=== PATIENT | female | born 1965 | race African-American/Black ===

== ENCOUNTER 2016-06-18 19:36 | Inpatient (IN) | payer MEDICAID ==
[2016-06-18] MEDS ORDERED: FUROSEMIDE 20 MG/2 ML VIAL IVP ONE (19:52)
--- NOTE | 2016-06-18 19:52 | EDPHY ---
HPI/HX/ROS/PE/MDM Narrative: CHIEF COMPLAINT: Dyspnea HPI: The patient is a homeless 51 y/o female arriving via EMS from the [facility] with her friend complaining of shortness of breath for the last 2 months. She was diagnosed with CHF 2 months ago and also has a history of diabetes. Every morning she notices chest heaviness when she puts on her bra and difficulty breathing that is aggravated by exertion. She says, "I'm huffing and puffing and I'm trying to make a doctor understand I'm having this issue." She has not taken any of her mediations including her furosemide for the last 3 days because "they're locked up in storage." She has an appointment scheduled with [facility] on Tuesday, in 3 days. REVIEW OF SYSTEMS: Aside from elements discussed in the HPI, a comprehensive 10-point review of systems was reviewed and is negative. PMH: CHF - Furosemide, sleep apnea, brain aneurysm with memory problems, diabetes SOCIAL HISTORY: [facility] 2 [facility]. Friend at bedside. Formerly lived in [place]. PCP: [facility] PHYSICAL EXAM: General:Patient is alert, obese, in no acute distress. ENT:Eyes are normal to inspection. ENT inspection normal. Neck: Normal inspection. Full range of motion. Respiratory:No respiratory distress. Breath sounds normal bilaterally. Speaking in full sentences. Cardiovascular: Regular rate and rhythm. Strong peripheral pulses. Normal cap refill. Abdomen:The abdomen is nontender to palpation. There are no peritoneal signs. There are normal bowel sounds. Back: Normal to inspection. No tenderness to palpation. Skin: Normal color. No rash. Warm and dry. Extremities: Normal appearance. Full range of motion. Neuro: Oriented x3. Normal motor function. Normal sensory function. ED Course: IV established. Labs drawn including CBC, CHEM, BNP, troponin. Lasix administered. Chest x-ray and EKG ordered. Study: Chest x-ray Indication: Dyspnea Results: Chest x-ray was obtained. The results of the study are cardiomegaly. Radiologist report pending. I viewed the images myself on the PACS system. The 12 lead EKG was interpreted by myself. See hard copy and/or "tracemaster" electronic copy for interpretation. 2005: Reviewed patient's records in [facility]. She has had multiple admissions and ED visits to local hospitalist in the last few months. She was last admitted to [place] on 05/23/16 for similar symptoms to her presentation here today. She had a negative work up for PE and other acute issues at that time. BNP, BGL, and troponin elevated. Patient will require admission for CHF exacerbation and dyspnea. She has not been hypoxemic while here. 2110: Spoke with Dr. Servin, hospitalist. He accepts admission. - Data Points Laboratory Results: Laboratory Results 06/18/16 19:45 06/18/16 19:45 06/18/16 06/18/16 19:45 19:45 WBC 7.14 10^3/uL 10^3/uL (3.80-9.50) RBC 4.75 10^6/uL 10^6/uL (4.18-5.33) Hgb 13.5 g/dL g/dL (12.6-16.3) Hct 40.8 % % (38.0-47.0) MCV 85.9 fL fL (81.5-99.8) MCH 28.4 pg pg (27.9-34.1) MCHC 33.1 g/dL g/dL (32.4-36.7) RDW 14.3 % % (11.5-15.2) Plt Count 356 10^3/uL 10^3/uL (150-400) MPV 10.4 fL fL (8.7-11.7) Neut % (Auto) 62.1 % % (39.3-74.2) Lymph % (Auto) 28.7 % % (15.0-45.0) Wright % (Auto) 6.2 % % (4.5-13.0) Eos % (Auto) 1.3 % % (0.6-7.6) Baso % (Auto) 1.0 % % (0.3-1.7) Nucleat RBC Rel Count 0.0 % % (0.0-0.2) Absolute Neuts (auto) 4.44 10^3/uL 10^3/uL (1.70-6.50) Absolute Lymphs (auto) 2.05 10^3/uL 10^3/uL (1.00-3.00) Absolute Monos (auto) 0.44 10^3/uL 10^3/uL (0.30-0.80) Absolute Eos (auto) 0.09 10^3/uL 10^3/uL (0.03-0.40) Absolute Basos (auto) 0.07 10^3/uL 10^3/uL (0.02-0.10) Absolute Nucleated RBC 0.00 10^3/uL 10^3/uL (0-0.01) Immature Gran % 0.7 % % (0.0-1.1) Immature Gran # 0.05 10^3/uL 10^3/uL (0.00-0.10) Sodium 139 mEq/L mEq/L (134-144) Potassium 4.0 mEq/L mEq/L (3.5-5.2) Chloride 103 mEq/L mEq/L (97-110) Carbon Dioxide 22 mEq/l mEq/l (22-31) Anion Gap 14 mEq/L mEq/L (8-16) BUN 21 mg/dL mg/dL (7-23) Creatinine 0.8 mg/dL mg/dL (0.6-1.0) Estimated GFR > 60 Glucose 387 mg/dL H mg/dL (70-100) Calcium 9.0 mg/dL mg/dL (8.5-10.4) Troponin I 0.039 ng/mL H ng/mL (0-0.034) NT-Pro-B Natriuret Pep 1350 pg/mL H pg/mL (0-125) Medications Given: Discontinued Medications Furosemide (Lasix Injection) 20 mg IVP EDNOW ONE Stop: 06/18/16 19:53 Last Admin: 06/18/16 20:14 Dose: 20 mg General Time Seen by Provider: 06/18/16 19:42 Initial Vital Signs: Initial Vital Signs Temperature (C) 36.6 C 06/18/16 19:49 Heart Rate 110 H 06/18/16 19:49 Respiratory Rate 26 H 06/18/16 19:49 Blood Pressure 186/86 H 06/18/16 19:49 O2 Sat (%) 97 06/18/16 19:49 O2 Delivery Mode Room Air Allergies/Adverse Reactions: ceftriaxone sodium [From Rocephin] Allergy (Verified 06/18/16 19:48) Home Medications: Medication Instructions Recorded Carvedilol 06/18/16 Lasix 06/18/16 Lisinopril 06/18/16 Metformin HCl 06/18/16 Departure - Departure Disposition: [facility] Inpatient Acute Clinical Impression: CHF exacerbation Qualifiers: Congestive heart failure type: unspecified congestive heart failure type Qualified Code(s): I50.9 - Heart failure, unspecified Dyspnea Qualifiers: Dyspnea type: shortness of breath Qualified Code(s): R06.02 - Shortness of breath Condition: Fair Referrals: Patient,NotPresent [Unknown] - As per Instructions Report Scribed for: Blair Hansen Report Scribed by: Ally Boston Date of Report: 06/18/16 Time of Report: 19:52 Physician Review and Approval Statement: Portions of this note were transcribed by an ED scribe. I personally performed the history, physical exam, and medical decision making; and confirm the accuracy of the information in the transcribed note.
[2016-06-18 20:00] LABS: % IMMATURE GRANULYOCYTES 0.7 % (0.0-1.1); ABSOLUTE IMMATURE GRANULOCYTES 0.05 10^3/uL (0.00-0.10); ADD DIFF? NO; ADD MORPH? NO; ADD SCAN? NO; ATYPICAL LYMPHOCYTE FLAG 10 (0-99); FRAGMENT RBC FLAG 10 (0-99); HEMATOCRIT 40.8 % (38.0-47.0); HEMOGLOBIN 13.5 g/dL (12.6-16.3); LEFT SHIFT FLG 10 (0-99); LIPEMIA HEMOLYSIS FLAG 80 (0-99); MEAN CELL HEMOGLOBIN 28.4 pg (27.9-34.1); MEAN CELL HEMOGLOBIN CONCENTR. 33.1 g/dL (32.4-36.7); MEAN CELL VOLUME 85.9 fL (81.5-99.8); MEAN PLATELET VOLUME 10.4 fL (8.7-11.7); PLATELET CLUMPS FLAG 10 (0-99); PLATELET COUNT 356 10^3/uL (150-400); RED BLOOD CELL COUNT 4.75 10^6/uL (4.18-5.33); RED CELL DISTRIBUTION WIDTH 14.3 % (11.5-15.2)
[2016-06-18 20:07] LABS: ANION GAP 14 mEq/L (8-16); CARBON DIOXIDE 22 mEq/l (22-31); CHLORIDE 103 mEq/L (97-110); CREATININE 0.8 mg/dL (0.6-1.0); GLOMERULAR FILTRATION RATE > 60; GLUCOSE 387 mg/dL (70-100); SODIUM 139 mEq/L (134-144)
[2016-06-18 20:17] LABS: TROPONIN I 0.039 ng/mL (0-0.034)
--- NOTE | 2016-06-18 22:53 | GHP ---
[f rep st] HISTORY AND PHYSICAL DATE OF ADMISSION: 06/18/2016 CHIEF COMPLAINT: Shortness of breath. HISTORY OF PRESENT ILLNESS: This is a 51-year-old female with a history of what appears to be a non ischemic cardiomyopathy. She has seen physicians at [place]. She was diagnosed about a year ago . She believes that it may have been due to crack cocaine usage prior. She states that for the las t several weeks, even months, she has been having shortness of breath, essentially all the time. No PND, no orthopnea. She was living in [place], but they came to [place]. She heard there were [employer] benefits here in terms of housing. She was feeling slightly more short of breath than normal toda y and called the paramedics, and she was slightly hypoxic, and they recommended her to come here. S he does have some lower extremity edema, a little bit of chest tightness as well. REVIEW OF SYSTEMS: A 10-point review of systems was obtained and other than stated was negative. PAST MEDICAL HISTORY: 1. CHF. 2. Hypertension. 3. Obstructive sleep apnea, and she has been without her CPAP machine for complicated reasons for t he last month. 4. Type 2 diabetes. 5. Hypertension. 6. Previous history of a ruptured cerebral aneurysm about 3 years ago. SOCIAL HISTORY: No smoking; no tobacco smoke, but has smoked marijuana. No alcohol. Smoked crack cocaine for 25 years, but quit 3 years ago, and that is when she moved here, as her son had moved he re to clean up his life as well. She has had a falling out with her son last month, and he actually has her CPAP machine, and there is currently a restraining order between them. FAMILY HISTORY: Many members of her family have congestive heart failure. PHYSICAL EXAM: VITAL SIGNS: Afebrile. Blood pressure is 159/92. Heart rate is 94, oxygen saturat ion 96% on room air. GENERAL: The patient is well developed, in no apparent distress. HEENT: Non icteric sclerae. EOMs intact. Moist mucous membranes. NECK: Supple. No thyromegaly. LUNGS: Pr elizabeth good effort. Clear to auscultation bilaterally. CARDIOVASCULAR: Regular rate and rhythm. No murmurs, rubs, or gallops. ABDOMEN: Positive bowel sounds. Soft, nontender, nondistended. No he patosplenomegaly. EXTREMITIES: No clubbing or cyanosis, 1+ pedal edema. NEUROLOGIC: Alert and or iented x3. Moving all 4 extremities equally. PSYCH: Normal mood and affect. LABS: Chemistry is normal. The glucose is 387. Troponin 0.039. BNP 1350. CBC is normal. IMAGING: Chest x-ray shows some possible early congestive heart failure. ASSESSMENT: This is a 51-year-old female with mild congestive heart failure exacerbation. PLAN: 1. CHF exacerbation. We will continue with IV Lasix. We will get an echocardiogram, so we can hav e one in the system here. We will continue her home medicines, which include ALEXIS inhibitor and Core g, as well as well Aldactone. She may need to increase her home dose of Lasix. 2. Mild troponin elevation. Suspect that there is some strain, but we will cycle these. 3. Type 2 diabetes. We will continue her metformin. 4. Hypertension. Continue her medications. /[id number]/MODL
[2016-06-19] MEDS: ASPIRIN EC 81 MG TAB PO SCH (08:05)
[2016-06-19] MEDS: LISINOPRIL 20 MG TAB PO SCH (08:05)
[2016-06-19] MEDS: metFORMIN HCL 500 MG TAB PO SCH ×2 (08:06→16:57)
--- NOTE | 2016-06-19 08:21 | HOSPPROG ---
Hospitalist Progress Note Assessment/Plan: #Acutely decompensated systolic HF -h/o crack use (last used 3 yrs ago). Obtain [facility] records for prior TTE -increase Lasix 40mg IV, afterload with ACEI. telemetry. Verbal report EF 15-20 % here -Appreciate Dr. Kinney consultation #Indeterminate troponin: suspect from volume overload -denies CP #Accelerated HTN -cont ACEI, add hydral PRN #Obesity: counseled on diet #Diet: cardiac, low Na #Disp: pt warrants admission given acute hypoxia, needing IV lasix, labs Subjective: denies CP Objective: Vital Signs Temp Pulse Resp BP Pulse Ox 36.6 C 89 22 H 132/87 H 98 06/19/16 07:52 06/19/16 07:52 06/19/16 07:52 06/19/16 08:05 06/19/16 07:52 - Physical Exam Constitutional: obese Eyes: PERRL Ears, Nose, Mouth, Throat: moist mucous membranes Cardiovascular: regular rate and rhythym, edema (LLE edema +1-2) Respiratory: no respiratory distress Gastrointestinal: normoactive bowel sounds, soft, non-tender abdomen Skin: warm Musculoskeletal: full muscle strength Neurologic: AAOx3 Psychiatric: interacting appropriately ICD10 Worksheet Patient Problems: Problems Problem Status Onset CHF exacerbation Acute Dyspnea Acute
[2016-06-19] MEDS ORDERED: FUROSEMIDE 20 MG/2 ML VIAL IVP SCH (09:00)
--- NOTE | 2016-06-19 09:24 | CPEKG ---
Heart Rate: 103 RR Interval: 583 P-R Interval: 160 QRSD Interval: 84 QT Interval: 380 QTC Interval: 498 P Stockholm: 71 QRS Stockholm: 10 T Wave Stockholm: 100 EKG Severity - ABNORMAL ECG - EKG Impression: SINUS TACHYCARDIA EKG Impression: LVH WITH SECONDARY REPOLARIZATION ABNORMALITY EKG Impression: BORDERLINE PROLONGED QT INTERVAL Electronically Signed By: Wilder Ramos 21-Jun-2016 09:42:32
[2016-06-19] MEDS ORDERED: hydrALAZINE 25 MG TAB PO PRN (12:17)
--- NOTE | 2016-06-19 12:52 | ECHO ---
[id number] + + [address] : : [place] [id number] : : [phone] + + Adult Echocardiographic Report + + :Name: MARINA TYLERAdelfo Date: 06/19/2016 10:40 AM : : Hospital Admission Number: [id number] : :: 1965 Gender: Female Height: 65 in : :Age: 51 yrs Race: BAA Weight: 280 lb : :Reason For Study: Eval LV Fx : : BSA: 2.3 meters2: :History: SOB, CHF : + + MMode/2D Measurements \T\ Calculations IVSd: 1.1 cm LVIDd: 6.1 cm FS: 8.4 % Ao root diam: 2.9 cm LVPWd: 1.2 cm LVIDs: 5.6 cm EDV(Teich): 184.5 ml ACS: 1.8 cm ESV(Teich): 150.8 ml EF(Teich): 18.2 % Normal Measurement Values: + + :LVIDd (3.5-5.7cm) IVSd (0.6-1.1cm) LVPWd (0.6-1.1cm) Aortic Root (2.0-3.7cm)Left Atrium (1.5-4.0cm): :LV Vol(d) (76-115ml) LV Vol(s) (29-48ml) Ejec Fraction (50-65%)PV Dung (0.6- 1.2m/s) TV Dung (0.4-1.0m/s) : :MV E Dung (0.8-1.0m/s)MV A Dung (0.3-1.0m/s)LVOT Dung (0.7-1.2m/s) Asc Ao Dung ( 0.9-1.8m/s) : + + Doppler Measurements \T\ Calculations MV E max dung: Ao V2 max: LV V1 max: PA V2 max: 72.1 cm/sec 119.0 cm/sec 71.1 cm/sec 100.0 cm/sec MV A max dung: Ao max PG: LV V1 max PG: PA max P.3 cm/sec 5.7 mmHg 2.0 mmHg 4.0 mmHg MV E/A: 0.77 TR max dung: 270.0 cm/sec TR max P.2 mmHg RAP systole: 5.0 mmHg RVSP(TR): 34.2 mmHg Left Ventricle The left ventricle is normal in size. There is mild concentric left ventricular hypertrophy. Left ventricular systolic function is severely reduced. Ejection Fraction = 15-20%. There is Doppler evidence for diastolic dysfunction. There is moderate to severe global hypokinesis of the left ventricle. Right Ventricle The right ventricle is normal size. Atria The left atrium is moderately dilated. Right atrial size is normal. Mitral Valve The mitral valve is normal. There is no mitral valve stenosis. There is trace to mild mitral regurgitation. Tricuspid Valve There is mild tricuspid regurgitation. Aortic Valve The aortic valve is normal in structure and function. The aortic valve is trileaflet. There is no aortic stenosis. There is no aortic insufficiency. Pulmonic Valve The pulmonic valve is normal in structure and function. There is no pulmonic valvular regurgitation. Great Vessels The aortic root is normal size. Pericardium/Pleural There is no pericardial effusion. Conclusion A complete two-dimensional transthoracic echocardiogram was performed (2D, M-mode, Doppler and color flow Doppler). There is mild concentric left ventricular hypertrophy. Ejection Fraction = 15-20%. There is moderate to severe global hypokinesis of the left ventricle. There is Doppler evidence for diastolic dysfunction. The right ventricle is normal size. The left atrium is moderately dilated. There is trace to mild mitral regurgitation. There is no mitral valve stenosis. The mitral valve is normal. There is mild tricuspid regurgitation. The aortic valve is normal in structure and function. The aortic valve is trileaflet. The pulmonic valve is normal in structure and function. There is no pericardial effusion. Left ventricular systolic function is severely reduced. Final Reading Physician: Isaura Horta signed on 06/19/2016 12:50 PM Ordering Physician: Latasha Bundy Performed By: Gilmer Morataya, LILICS
--- NOTE | 2016-06-19 15:15 | GCON ---
[f rep st] CONSULTATION CARDIOLOGY CONSULTATION. CHIEF COMPLAINT: Shortness of breath. HISTORY OF PRESENT ILLNESS: This very pleasant woman has been suffering severely with shortness of breath. Her shortness of breath was so severe yesterday, [facility]. They got there, and her oxygen saturation was low and she was brought to the emergency room. She did not want to come to the hospital because she does not like hospitals, she does not like getting her blood drawn. However, she decided that she needed to be here, so she is glad to be here at this point in time. She has had ongoing shortness of breath. There are no pillows at the [facility] so she sleeps on 4-5 blankets folded over to raise her head up, and she still will wake up sometimes with shortness of breath at night. She has gained 80 pounds. She has no early satiety, no appetite loss. She has no chest pain, chest tightness, jaw pain, arm pain, pleuritic chest pain. She has a chronic cough but she does not produce significant sputum. She has not had fever, chills, cough, rashes, or swollen joints. She has multiple major severe medical problems. She is not having lightheadedness or dizziness now. She does, however, have a history of a brain aneurysm a year. She has a long history of asthma as a child. CARDIAC RISK FACTORS: Positive for diabetes mellitus, massive obesity, hypertension. She denies hyperlipidemia, hyperuricemia, smoking history, or family history of premature coronary disease. She has no known coronary artery disease. She has had a coronary angiogram at another hospital, and they said that her arteries were fine. She has a remote history of using cocaine for 25 years and has not used it for 3 years. She has ongoing sleep apnea. She has had CPAP machine in the past, but somebody who was mad at her got rid of the CPAP machine. As mentioned above, she has had a history of a brain aneurysm. SOCIAL HISTORY: She was born in the [facility] north of [place], [place]. She has been in [place] for 20 months. She has been in [place] recently. Before that , she was down in [facility]. She is unable to work because of her congestive heart failure. She is living at the [facility]. She never smoked cigarettes. She does smoke marijuana. She has 1 child who can get quite mad at her. She does not drink alcohol. She cannot exercise very well. She has chronic fatigue and is weak. FAMILY HISTORY: Her mother and father both had congestive heart failure. They did not have premature coronary disease, and there is no premature coronary disease in her family. REVIEW OF SYSTEMS: A 10-point review of systems is negative except as noted above, and the other problems that are highlighted in the chart already and are not going to be repeated here. PROBLEMS: Include: 1. A history of a cerebral aneurysm that ruptured. 2. She has intermittent occasional headaches but that is not a major problem for her. 3. She has never had a history of cancer. MEDICATIONS: Lasix, Norvasc, lisinopril, aspirin, and Glucophage. She has been out of her medications recently and that it has been a problem for her. ALLERGIES: She is allergic to Rocephin. No other medical allergies are known at this time. PHYSICAL EXAMINATION: VITAL SIGNS: She is afebrile. Respiratory rate is 20, heart rate is 90, blood pressure is 145/70. HEENT: Pupils equal and reactive. Mucous membranes of mouth moist. NECK: Supple. CARDIOVASCULAR: Distant heart sounds, S1, S2, cannot hear a clearcut murmur. Jugular venous distention cannot be discerned given the size of her neck. Her pulse is regular. ABDOMEN : Soft, nontender, without masses. CVA no tenderness. PULMONARY: Dullness at the bases with rhonchi, decreased breath sounds. No significant wheezing. EXTREMITIES: Mild edema. No calf tenderness. Negative Homans' sign. SKIN: Not pale. No significant number of abrasions or other bruises. NEUROLOGIC: Grossly intact and very cooperative. PSYCH: No obvious anxiety or depression. LABORATORY EVALUATION: She has a chest x-ray, which shows a large heart. It is a poor study that shows a question of the aortic arch being small, pulmonary arteries being large, raising the question of a shunt. Troponin 0.039. BNP 1350. Glucose 387, BUN 21. I do not have her creatinine here. White count 7.14, hematocrit 40, platelet count 356. Sodium 139, potassium 4, chloride 103, CO2 22, BUN 21, creatinine 0.8, glucose 387. Troponin 0.039, 0.043, 0.029. BNP 1350. EKG shows left ventricular hypertrophy, sinus tachycardia, QT prolongation. Echocardiographic shows a dilated left ventricle and ejection fraction of 15% to 20%, severe global hypokinesis, concentric left ventricular hypertrophy, moderate to severe global hypokinesis. Right ventricle is normal in size. Left atrium is dilated. Trace to mild mitral regurgitation. No mitral stenosis. Mild tricuspid regurgitation. No pericardial effusion. ASSESSMENT: 1. Congestive heart failure. 2. Dilated cardiomyopathy. 3. Increasing shortness of breath. 4. Eighty pound weight gain. 5. History of cocaine abuse. 6. Status post brain aneurysm rupture. 7. Diabetes mellitus. 8. Hypertension. 9. Asthma. 10. Obesity. 11. Sleep apnea. 12. Family history of heart failure. PLAN: When we look at a dilated cardiomyopathy, over 50% of the cases are idiopathic, 10% may be due to myocarditis, less than 10%, due to coronary disease, 5% will be due to infiltrative diseases, and about the same to hypertension, 4% due to human immunodeficiency virus, a number that I keep in my mind, and connective tissue disease can be 30%, as can substance abuse. She has been evaluated carefully, had coronary angiography. I would do an MRI on her if it has not been done, but let's try to get the results first and see what is going on and what evaluation has been done. Chagas disease is something we see here occasionally, but she has not been in the endemic areas. Also Lyme disease can cause this, but it is usually manifested by a conduction abnormality, which she is not having at this point in time. She also does not have pericardial effusions often seen with that. Genetic cardiomyopathy is interesting given her family history. She does not have a hypertrophic cardiomyopathy, which sometimes in the end can resemble a dilated cardiomyopathy. There are rarer things such as left ventricular noncompaction. I do not think she fits the criteria for that. Because of the question of a shunt on her chest x-ray, we will do a bubble study. Clearly cocaine is associated with cardiomyopathy often presenting as cardiomegaly and unexplained heart failure in the young. She tells me she has not used cocaine for 3 years and often the dilated cardiomyopathy with cocaine gets better with abstinence. I believe she is not using, but obviously we cannot be totally sure about that right now. She has not been exposed to significant chemotherapeutic agents that might cause her trouble. Autoimmune illnesses are something to consider. I would plan to continue the diuresis for now, manage her blood pressure, and watch how she responds to this treatment. I would consider adding a beta eliana tomorrow depending on how she does, and would use bisoprolol as it causes less reactive airways disease than the other beta blockers do. If we start, I would start at 2.5 mg of bisoprolol a day, and we could do this tomorrow if she is continuing to improve. If we find she has not had an MRI, we can do that study here. I do not see any reason to think she needs an evaluation for an acute coronary syndrome at this time. I do not think that she needs invasive angiography, etc. She has nothing to suggest acute coronary syndrome. She has had negative catheterization recently. She has no clinical presentation for that. Her obesity is a major medical illness and something that needs to be addressed very carefully. I believe she can be highly motivated enough that if she tries to she can lose this weight quite well. However, she is under a stressful situation given her living situation and the situation with her son. We will follow her closely with you. Thank you very much. /[id number]/MODL MTDD
[2016-06-19] MEDS: FUROSEMIDE 40 MG/4 ML VIAL IVP SCH (16:56)
[2016-06-19 20:40] LABS: ANION GAP 13 mEq/L (8-16); CALCIUM 8.9 mg/dL (8.5-10.4); CARBON DIOXIDE 18 mEq/l (22-31); CHLORIDE 106 mEq/L (97-110); CREATININE 0.8 mg/dL (0.6-1.0); GLOMERULAR FILTRATION RATE > 60; GLUCOSE 239 mg/dL (70-100); MAGNESIUM 1.6 mg/dL (1.6-2.3); POTASSIUM 5.3 mEq/L (3.5-5.2); SODIUM 137 mEq/L (134-144)
[2016-06-19 20:49] LABS: SPECIMEN HEMOLYSIS 257
[2016-06-20 06:25] LABS: ANION GAP 9 mEq/L (8-16); CALCIUM 9.1 mg/dL (8.5-10.4); CARBON DIOXIDE 24 mEq/l (22-31); CHLORIDE 103 mEq/L (97-110); CREATININE 0.7 mg/dL (0.6-1.0); GLOMERULAR FILTRATION RATE > 60; GLUCOSE 230 mg/dL (70-100); MAGNESIUM 1.8 mg/dL (1.6-2.3); POTASSIUM 4.5 mEq/L (3.5-5.2); SODIUM 136 mEq/L (134-144)
[2016-06-20] MEDS: metFORMIN HCL 500 MG TAB PO SCH ×2 (07:38→18:03)
[2016-06-20] MEDS: FUROSEMIDE 40 MG/4 ML VIAL IVP SCH ×2 (07:38→18:01)
[2016-06-20] MEDS: ASPIRIN EC 81 MG TAB PO SCH (07:38)
[2016-06-20] MEDS: LISINOPRIL 20 MG TAB PO SCH (07:39)
[2016-06-20] MEDS ORDERED: D50W 25 GM/50 ML SYR IVP PRN (08:18)
--- NOTE | 2016-06-20 08:23 | HOSPPROG ---
Hospitalist Progress Note Assessment/Plan: #Acutely decompensated systolic HF: EF 15-20% -appreciate Cardiology consultation. Has had prior angiography. -good diuresis, will increase to Lasix 60mg IV BID. BP controlled with ACEI. Add Bispropolol -Appreciate Dr. Kinney consultation. He will order cardiac MRI tomorrow, arrange FU with heart failure team #Indeterminate troponin: suspect from volume overload -denies CP #Accelerated HTN: resolved. Cont ACEI, add hydral PRN #h/o brain aneurysm: new info to me today. Obtaining OSH records #h/o asthma: PRN albuterol #Uncontrolled DM: add SSI, A1c pending #Obesity: counseled on diet #Diet: cardiac, low Na #Disp: pt warrants admission given acute hypoxia, needing IV lasix, labs. Transfer to PCU for ongoing care Subjective: no chest pain or dizziness. SOB has improved Objective: Vital Signs Temp Pulse Resp BP Pulse Ox 36.6 C 78 22 H 124/84 H 95 06/20/16 07:50 06/20/16 07:50 06/20/16 07:50 06/20/16 07:50 06/20/16 07:50 Laboratory Results 06/20/16 05:25 06/19/16 06/20/16 06/21/16 05:59 05:59 05:59 Intake Total 1750 Output Total 3050 Balance -1300 - Physical Exam Constitutional: obese Eyes: PERRL Ears, Nose, Mouth, Throat: moist mucous membranes, hearing normal Cardiovascular: regular rate and rhythym, no murmur, rub, or gallop Respiratory: no respiratory distress, no rales or rhonchi Gastrointestinal: normoactive bowel sounds, soft, non-tender abdomen Genitourinary: no bladder fullness, no bladder tenderness Skin: warm, normal color Musculoskeletal: full muscle strength, no muscle tenderness Neurologic: AAOx3, sensation intact bilaterally, CN II-XII Intact Psychiatric: interacting appropriately ICD10 Worksheet Patient Problems: Problems Problem Status Onset CHF exacerbation Acute Dyspnea Acute
[2016-06-20] MEDS ORDERED: FUROSEMIDE 20 MG/2 ML VIAL IVP ONE (10:45)
--- NOTE | 2016-06-20 10:50 | SOAPPROG ---
SOAP Progress Note Assessment/Plan: Assessment: 1. Cardiomyopathy 2. Obesity 3. diabetes mellitus 4. He weakness 5. HFREF ; ACUTE ON CHRONIC SHE IS NOT DOING WELL OVERALL. SHE HAS SIGNIFICANT HEART FAILURE. SHE HAS HAD A DIURESIS AND WE WILL INCREASE HER LASIX DOSE. ALSO WE WILL INCREASE HER POTASSIUM INTAKE TO MAKE SURE SHE STAYS ABOVE 4.0. SHE HAS NO NEW COMPLAINTS RIGHT AT THIS MINUTE. WE WILL ALSO START A BETA-JEET. WILL START THIS MORNING TO SEE IF SHE HAS ANY RESPIRATORY COMPLICATIONS WITH THAT WILL USE BISOPROLOL TO TRY TO MINIMIZE THE CHANCES OF RESPIRATORY ISSUES. I WILL ORDER A CARDIAC MRI AND WE WILL SEE IF THERE IS SOMETHING THAT STUDY CAN HELP US WITH THAT WE COULD IMPACT ON IN TERMS OF HER HEART FAILURE. WE WILL ALSO HAVE HER SEEN BY THE HEART FAILURE SERVICE WHEN LINE I WILL SET HER UP FOR A VO2 MAX STRESS TEST WELL AN OUTPATIENT. I WILL ALSO SEE HER IN CLINIC. FOR NOW I WOULD TRY TO DIURESE HER FOR THE NEXT SEVERAL DAYS. WE WILL ALSO UP TITRATE HER MEDICATIONS. WE WANT TO GET HER BLOOD PRESSURE DOWN TO THE 135/80 RANGE IF POSSIBLE. ALL HER QUESTIONS HAVE BEEN ANSWERED. I HAVE SPOKEN WITH THE HOSPITALIST ABOUT HER. I HAVE ALSO SPOKEN WITH THE NURSING STAFF. DO BELIEVE THAT HER FRIEND WITH MAJOR COLD SHOULD LEAVE IN NOT STAY MORE THAN 1 HOUR THE NURSING STAFF IS SUGGESTED AND THE PATIENT'S FRIEND WAS QUITE RUDE WHILE I WAS THERE TO THE NURSING STAFF AND WENT IN AND TOLD THEM THAT THEY HAD TO BE RESPECTFUL TO THE NURSES. Plan: 06/20/16 10:46 Subjective: she continues to have shortness of breath. She is not having fevers or chills She is not having chest pain She has no nausea or vomiting. She feels a little better than when she came in. She has no neurologic complaints. She has a friend with her who is very worried and tearful. Another friend is with her is quite come. The friend is tearful is very ill in wearing a mask. Objective: Vital Signs Temp Pulse Resp BP Pulse Ox 36.6 C 78 22 H 124/84 H 95 06/20/16 07:50 06/20/16 07:50 06/20/16 07:50 06/20/16 07:50 06/20/16 07:50 Laboratory Results 06/20/16 05:25 06/19/16 06/20/16 06/21/16 05:59 05:59 05:59 Intake Total 1750 Output Total 3050 Balance -1300 Physical Exam - Physical Exam General Appearance: alert, no apparent distress Respiratory: decreased breath sounds, prolonged expiration Cardiac/Chest: regular rate, rhythm, edema, systolic murmur, No gallop Abdomen: normal bowel sounds, non-tender, soft Skin: warm/dry Neuro/Psych: alert, normal mood/affect, oriented x 3 ICD10 Worksheet Patient Problems: Problems Problem Status Onset CHF exacerbation Acute Dyspnea Acute
[2016-06-20] MEDS: BISOPROLOL FUMARATE 5 MG TAB PO SCH (12:05)
[2016-06-20] MEDS: INSULIN LISPRO 100 UNIT/ML SC SCH ×2 (12:10→18:02)
[2016-06-20] MEDS ORDERED: ALBUTEROL 60 PUFFS/8 GM MDI IH PRN (14:58)
[2016-06-21 01:12] LABS: HEMOGLOBIN A1C 10.6 % (4.0-6.0)
[2016-06-21 05:14] LABS: ANION GAP 11 mEq/L (8-16); CALCIUM 9.4 mg/dL (8.5-10.4); CARBON DIOXIDE 25 mEq/l (22-31); CHLORIDE 103 mEq/L (97-110); CREATININE 0.8 mg/dL (0.6-1.0); GLOMERULAR FILTRATION RATE > 60; GLUCOSE 188 mg/dL (70-100); POTASSIUM 4.5 mEq/L (3.5-5.2); SODIUM 139 mEq/L (134-144)
[2016-06-21] MEDS: metFORMIN HCL 500 MG TAB PO SCH ×2 (08:42→17:22)
[2016-06-21] MEDS: LISINOPRIL 20 MG TAB PO SCH (08:43)
[2016-06-21] MEDS: BISOPROLOL FUMARATE 5 MG TAB PO SCH (08:43)
[2016-06-21] MEDS: ASPIRIN EC 81 MG TAB PO SCH (08:43)
[2016-06-21] MEDS: FUROSEMIDE 40 MG/4 ML VIAL IVP SCH ×2 (08:43→14:31)
[2016-06-21] MEDS: INSULIN LISPRO 100 UNIT/ML SC SCH ×3 (08:44→17:22)
--- NOTE | 2016-06-21 10:26 | HOSPPROG ---
Hospitalist Progress Note Assessment/Plan: #Acutely decompensated systolic HF: EF 15-20%. Weight down 1.5 kg, net neg 3.3 L. Has had prior angiography. -appreciate Cardiology consultation. -cont Lasix 60 mg IV BID. -Cardiac MRI per Cards, will need f/u with heart failure team #Asymmetric LE edema, L>R: LLE duplex neg for DVT. #Indeterminate troponin: suspect from volume overload, no CP #HTN: BP controlled with ALEXIS, Bispropolol, hydral PRN #h/o ruptured cerebral aneurysm 3 yrs ago: Obtaining OSH records #h/o asthma: PRN albuterol #Uncontrolled DM: bg's 200's, add Lantus, cont SSI, A1c 10.6 #Obesity: counseled on diet #Diet: cardiac, low Na #Disp: cont inpt for ongoing diuresis Subjective: PT feels better. Denies CP or SOB. No orthopnea or PND. Appetite good. Ambulating. Objective: Vital Signs Temp Pulse Resp BP Pulse Ox 37.0 C 77 21 H 121/92 H 97 06/21/16 07:24 06/21/16 07:24 06/21/16 07:24 06/21/16 07:24 06/21/16 07:24 Laboratory Results 06/21/16 03:40 06/20/16 06/21/16 06/22/16 05:59 05:59 05:59 Intake Total 1750 950 Output Total 3050 2000 1000 Balance -1300 -1050 -1000 - Physical Exam Constitutional: no apparent distress, obese Eyes: PERRL Ears, Nose, Mouth, Throat: moist mucous membranes Cardiovascular: regular rate and rhythym Respiratory: no respiratory distress, clear to auscultation Gastrointestinal: normoactive bowel sounds, soft, non-tender abdomen Skin: warm Musculoskeletal: full muscle strength, other (L>R LE pitting edema) Neurologic: AAOx3 Psychiatric: interacting appropriately ICD10 Worksheet Patient Problems: Problems Problem Status Onset CHF exacerbation Acute Dyspnea Acute
--- NOTE | 2016-06-21 11:41 | CPEKG ---
Heart Rate: 86 RR Interval: 698 P-R Interval: 156 QRSD Interval: 86 QT Interval: 388 QTC Interval: 464 P [place]: 60 QRS [place]: 8 T Wave [place]: 67 EKG Severity - ABNORMAL ECG - EKG Impression: SINUS RHYTHM EKG Impression: PROBABLE LEFT ATRIAL ABNORMALITY EKG Impression: LEFT VENTRICULAR HYPERTROPHY Electronically Signed By: Wilder Ramos 21-Jun-2016 14:51:28
--- NOTE | 2016-06-21 16:15 | SOAPPROG ---
SOAP Progress Note Assessment/Plan: Assessment: 1. Cardiomyopathy 2. Obesity 3. diabetes mellitus 4. He weakness 5. HFREF ; ACUTE ON CHRONIC Plan: 06/20/16 10:46 06/21/16 16:09 1. Cardiomyopathy 2. Obesity 3. Diabetes mellitus 4. Weakness 5.HFREF ; acute on chronic 6 hypertension I had a long talk with her and with her son and with her other friend who is here. She was 1st diagnosed with a weak heart in the fall or winter of 2014 at [facility]. She was so sick they sent her home with a life vest. I am assuming this means that she had a low ejection fraction and she still has a low ejection fraction. She is stopping using life vest. If we document that she had a low ejection fraction that long ago I am recommending she received an ICD before she be discharged from the hospital. I have gone over this extensively with all of them and they understand and I think they agree but we do not know that for sure. She is continuing to diurese. She has losing a L a day and I would continue for that kind of a number. She feels Much much better. She is going to get her MRI and will look for causes of her cardiomyopathy. She will definitely follow up with the Heart failure service. We will set her up for a VO2 max stress test and she can see heart failure Team as an outpt. I have answered all of her questions. Her prognosis has to be guarded because she has poor left ventricular systolic function she has had a significant history of drug abuse for over 25 years. She has multiple other comorbid conditions and she is massively obese her blood sugars are very poorly controlled. We will offer to help her and do ever we can for her. I have reviewed prevention with her extensively. Do not think she needs further invasive coronary artery disease evaluation because of a negative catheterization 12 months ago. She does not have symptoms of an acute coronary syndrome. Rhythm once she is stable right now. Do believe she would benefit from an ICD. Have to document how long she has been with a low EF. Subjective: she is short of breath. She has no chest pain. She has no orthopnea. She is losing weight and feels much better. She is not lightheaded or dizzy She is not having fevers or chills No nausea vomiting. No hot swollen joints. She does not have any viral illness syndrome. She is not having head cold or any other issues right now. She is walking around in her room. She has not had more swelling of her lower extremities. Objective: Vital Signs Temp Pulse Resp BP Pulse Ox 37.0 C 67 20 105/65 99 06/21/16 11:54 06/21/16 11:54 06/21/16 11:54 06/21/16 11:54 06/21/16 11:54 Laboratory Results 06/21/16 03:40 06/20/16 06/21/16 06/22/16 05:59 05:59 05:59 Intake Total 1750 950 Output Total 3050 2000 1000 Balance -1300 -1050 -1000 Laboratory Tests 06/18/16 06/18/16 06/19/16 19:45 19:45 05:30 Hct 40.8 Plt Count 356 BUN Creatinine Glucose 387 H POC Glucose Troponin I 0.039 H 0.043 H NT-Pro-B Natriuret Pep 1350 H 06/19/16 06/19/16 06/20/16 11:27 20:10 05:25 Hct Plt Count BUN Creatinine Glucose 239 H 230 H POC Glucose Troponin I 0.029 NT-Pro-B Natriuret Pep 06/20/16 06/20/16 06/20/16 12:01 16:33 20:25 Hct Plt Count BUN Creatinine Glucose POC Glucose 215 H 276 H 241 H Troponin I NT-Pro-B Natriuret Pep 06/21/16 06/21/16 06/21/16 03:40 07:12 12:49 Hct Plt Count BUN 20 Creatinine 0.8 Glucose 188 H POC Glucose 206 H 231 H Troponin I NT-Pro-B Natriuret Pep Physical Exam - Physical Exam General Appearance: no apparent distress Respiratory: decreased breath sounds, rhonchi Cardiac/Chest: regular rate, rhythm, systolic murmur, No friction rub Abdomen: normal bowel sounds, non-tender, soft, No organomegaly Extremities: non-tender, swelling, No calf tenderness Neuro/Psych: alert ICD10 Worksheet Patient Problems: Problems Problem Status Onset CHF exacerbation Acute Dyspnea Acute
[2016-06-21] MEDS ORDERED: INSULIN GLARGINE 100 UNITS/ML SYRINGE SC SCH (21:00)
[2016-06-22 04:49] LABS: ANION GAP 11 mEq/L (8-16); CALCIUM 9.8 mg/dL (8.5-10.4); CARBON DIOXIDE 26 mEq/l (22-31); CHLORIDE 102 mEq/L (97-110); GLOMERULAR FILTRATION RATE 58; GLUCOSE 184 mg/dL (70-100); POTASSIUM 4.7 mEq/L (3.5-5.2); SODIUM 139 mEq/L (134-144)
[2016-06-22] MEDS: metFORMIN HCL 500 MG TAB PO SCH ×2 (08:32→18:30)
[2016-06-22] MEDS: LISINOPRIL 20 MG TAB PO SCH (08:33)
[2016-06-22] MEDS: ASPIRIN EC 81 MG TAB PO SCH (08:33)
[2016-06-22] MEDS: BISOPROLOL FUMARATE 5 MG TAB PO SCH (08:33)
[2016-06-22] MEDS: INSULIN LISPRO 100 UNIT/ML SC SCH ×3 (08:33→18:30)
[2016-06-22] MEDS: FUROSEMIDE 40 MG/4 ML VIAL IVP SCH ×2 (08:34→15:54)
--- NOTE | 2016-06-22 14:32 | SOAPPROG ---
[facility] Progress Note Assessment/Plan: Assessment: 1. Cardiomyopathy 2. Obesity 3. diabetes mellitus 4. He weakness 5. HFREF ; ACUTE ON CHRONIC Plan: 06/20/16 10:46 06/21/16 16:09 1. Cardiomyopathy 2. Obesity 3. Diabetes mellitus 4. Weakness 5.HFREF ; acute on chronic 6 hypertension 06/22/16 14:30 She is losing weight. She is diuresing. She is breathing better. Her electrolytes are still acceptable. Her renal function is stable. There is nothing to suggest an acute coronary syndrome. I have pursued her records from [facility] where she had her aneurysm clipped. I have discussed what we know about this clip with the MRI department and placed to calls to them today to try to figure out of we can proceed with a cardiac MRI. If we cannot do that and need more information from [place] I want to get working on that right away. I also need to resolve the issue about whether not she is going to get a defibrillator. In the meantime she not been a good deal of time talking about exercise weight being active. I have talked to her son and her friend both and all her questions have been answered. She is a very serious medical condition and prognosis is guarded. I would add Aldactone to her medications at this point time. We can start a low dose. I would continue her other medications and will watch very carefully what her potassium does. She is tolerating her beta-eliana and I would not increase that right now. She is taking her ALEXIS-inhibitor and doing well with that. She does not seem to be having any significant asthma from the bisoprolol at the current dose. Were she had a patient with Medicare I would order the transitional care program to follow her. However she has not received her social security disability and therefore she is not a candidate for the transitional care program right now because she does not qualify for Medicare. 06/22/16 14:34 06/22/16 14:35 Subjective: She remains short of breath. She is markedly overweight. She feels improved. She has no chest pain jaw pain arm pain. She is not lightheaded or dizzy. She has no bleeding. She has no nausea or vomiting. She is eager to be walking around more. Objective: Vital Signs Temp Pulse Resp BP Pulse Ox 36.9 C 68 16 103/60 99 06/22/16 11:22 06/22/16 11:22 06/22/16 11:22 06/22/16 11:22 06/22/16 11:22 Laboratory Results 06/22/16 03:41 06/21/16 06/22/16 06/23/16 05:59 05:59 05:59 Intake Total 950 800 Output Total 1999 2149 Balance -1050 -1350 Physical Exam - Physical Exam General Appearance: alert Neck: supple Respiratory: rhonchi, prolonged expiration Cardiac/Chest: regular rate, rhythm, edema, systolic murmur Abdomen: normal bowel sounds, non-tender, soft, No organomegaly Skin: warm/dry Extremities: pedal edema, No non-tender Neuro/Psych: alert, normal mood/affect ICD10 Worksheet Patient Problems: Problems Problem Status Onset CHF exacerbation Acute Dyspnea Acute
[2016-06-22] MEDS: SPIRONOLACTONE 25 MG TAB PO SCH (15:54)
--- NOTE | 2016-06-22 16:11 | HOSPPROG ---
Hospitalist Progress Note Assessment/Plan: #Acutely decompensated systolic HF: EF 15-20%. Weight down 2 kg, net neg 3.3 L. BUN on the rise. Had neg cath 1 yr ago. -cont Lasix 60 mg IV BID. -spironolactone added, follow bmp -Cardiac MRI per Cards -she is being evaluated for possible AICD placement #Asymmetric LE edema, L>R: LLE duplex neg for DVT. #Indeterminate troponin: suspect from volume overload, no CP #HTN: BP controlled with ALEXIS, Bispropolol, hydral PRN #h/o ruptured cerebral aneurysm 3 yrs ago #h/o asthma: PRN albuterol #Uncontrolled DM: A1c 10.6. bg's still 200's, will increase Lantus, cont SSI #Obesity: counseled on diet #Diet: cardiac, low Na #Disp: cont inpt for ongoing diuresis, heart failure management Subjective: Pt feels better. No CP or SOB. She wishes to ambulate in the halls. Eating well, good diuresis. No fevers. Objective: Vital Signs Temp Pulse Resp BP Pulse Ox 36.9 C 68 16 103/60 99 06/22/16 11:22 06/22/16 11:22 06/22/16 11:22 06/22/16 11:22 06/22/16 11:22 Laboratory Results 06/22/16 03:41 06/21/16 06/22/16 06/23/16 05:59 05:59 05:59 Intake Total 950 800 Output Total 2000 2150 Balance -1050 -1350 - Physical Exam Constitutional: no apparent distress Eyes: PERRL Ears, Nose, Mouth, Throat: moist mucous membranes Cardiovascular: regular rate and rhythym Respiratory: no respiratory distress, clear to auscultation Gastrointestinal: normoactive bowel sounds, soft, non-tender abdomen Skin: warm Musculoskeletal: full muscle strength, other (L>R LE edema) Neurologic: AAOx3 Psychiatric: interacting appropriately ICD10 Worksheet Patient Problems: Problems Problem Status Onset CHF exacerbation Acute Dyspnea Acute
[2016-06-22] MEDS: INSULIN GLARGINE 100 UNITS/ML SYRINGE SC SCH (20:52)
[2016-06-22] MEDS ORDERED: ACETAMINOPHEN 500 MG TAB ONE (22:12)
[2016-06-23 05:59] LABS: ANION GAP 14 mEq/L (8-16); CALCIUM 9.8 mg/dL (8.5-10.4); CARBON DIOXIDE 25 mEq/l (22-31); CHLORIDE 100 mEq/L (97-110); GLOMERULAR FILTRATION RATE 58; GLUCOSE 168 mg/dL (70-100); POTASSIUM 4.9 mEq/L (3.5-5.2); SODIUM 139 mEq/L (134-144)
[2016-06-23] MEDS: FUROSEMIDE 40 MG/4 ML VIAL IVP SCH (08:11)
[2016-06-23] MEDS: INSULIN LISPRO 100 UNIT/ML SC SCH ×3 (08:11→17:26)
[2016-06-23] MEDS: ASPIRIN EC 81 MG TAB PO SCH (08:12)
[2016-06-23] MEDS: metFORMIN HCL 500 MG TAB PO SCH ×2 (08:12→17:26)
[2016-06-23] MEDS: SPIRONOLACTONE 25 MG TAB PO SCH (08:12)
[2016-06-23] MEDS: LISINOPRIL 20 MG TAB PO SCH (08:12)
[2016-06-23] MEDS: BISOPROLOL FUMARATE 5 MG TAB PO SCH (08:12)
[2016-06-23] MEDS ORDERED: FUROSEMIDE 40 MG TAB PO SCH (09:00)
--- NOTE | 2016-06-23 10:58 | HOSPPROG ---
Hospitalist Progress Note Assessment/Plan: #Acutely decompensated systolic HF: EF 15-20%. Weight down 3 kg, net neg 4.4 L. BUN on the rise. Had neg cath 1 yr ago. -will change to oral Lasix. -spironolactone added, follow bmp -Cardiac MRI per Cards -had brief run of V tac overnight, no symptoms -AICD in am, NPO at midnight #Asymmetric LE edema, L>R: LLE duplex neg for DVT. #Indeterminate troponin: suspect from volume overload, no CP #HTN: BP controlled with ALEXIS, Bispropolol, hydral PRN #h/o ruptured cerebral aneurysm 3 yrs ago, reviewed OSH records #h/o asthma: PRN albuterol #Uncontrolled DM: A1c 10.6. bg's in 100's now with addition and up-titration of Lantus, cont SSI #Obesity: counseled on diet #Diet: cardiac, low Na #Disp: cont inpt for ongoing diuresis, heart failure management, AICD placement Subjective: Pt feels well. Had 6-8 beat run of VT at 19:30 last night. She denies symptoms at that time. No CP or SOB today. Still on 2 LPM O2. Good uop. Ambulating, getting restless in hospital. Objective: Vital Signs Temp Pulse Resp BP Pulse Ox 36.8 C 66 17 106/74 99 06/23/16 07:08 06/23/16 07:08 06/23/16 07:08 06/23/16 07:08 06/23/16 07:08 Laboratory Results 06/23/16 03:41 06/22/16 06/23/16 06/24/16 05:59 05:59 05:59 Intake Total 800 920 Output Total 2150 1600 Balance -1951 -494 - Physical Exam Constitutional: no apparent distress Eyes: PERRL Ears, Nose, Mouth, Throat: moist mucous membranes Cardiovascular: regular rate and rhythym Respiratory: no respiratory distress, clear to auscultation Gastrointestinal: normoactive bowel sounds, soft, non-tender abdomen Skin: warm Musculoskeletal: other (b/L LE edema L>R) Neurologic: AAOx3 Psychiatric: interacting appropriately ICD10 Worksheet Patient Problems: Problems Problem Status Onset CHF exacerbation Acute Dyspnea Acute
[2016-06-23] MEDS: FUROSEMIDE 40 MG TAB PO SCH (14:36)
--- NOTE | 2016-06-23 15:56 | SOAPPROG ---
[facility] Progress Note Assessment/Plan: Assessment: 1. Cardiomyopathy 2. Obesity 3. diabetes mellitus 4. He weakness 5. HFREF ; ACUTE ON CHRONIC Plan: 06/20/16 10:46 06/21/16 16:09 1. Cardiomyopathy 2. Obesity 3. Diabetes mellitus 4. Weakness 5.HFREF ; acute on chronic 6 hypertension 06/22/16 14:30 06/22/16 14:34 06/22/16 14:35 06/23/16 15:54 She is tolerating her medications at this point time. We will watch her potassium carefully as she has been started on Aldactone. I have asked for a electrophysiology consultation with Dr. Wilder. He has seen the patient and she has agreed to defibrillator. She and I talked about defibrillator every day that she has been here. She has a good understanding of what it does She understands about the complication of defibrillator is going often than not he needed. He had appropriate shocks are an issue. She understands this she wants to proceed with the defibrillator. I think is by far the best choice for her. However we have been unable to find out about the clip in her brain. We are continuing to work on this with a he has to hospital. I would very much like to get a cardiac MRI. I have also discussed her case with the heart failure service and they will follow her as an outpatient. She is feeling stronger She is feeling better She has less shortness of breath She would like to get out of the hospital as soon as possible. She and I talked about diet extensively. We have reviewed prevention. We need to get her cutting her calories and doing more walking about. I will be happy to follow her overall clinic. Her questions have been answered. Subjective: She does not have chest pain today. She has shortness of breath. She is tired of being in the hospital. She would like to go home soon. She has no headaches No stiff neck no other neurologic complaints. She has no orthopnea. No PND Her edema is decreasing. She is not having nausea vomiting. She is not having any bleeding problems. She is taking her Objective: Vital Signs Temp Pulse Resp BP Pulse Ox 36.8 C 62 18 107/70 99 06/23/16 11:32 06/23/16 11:32 06/23/16 11:32 06/23/16 11:32 06/23/16 11:32 Laboratory Results 06/23/16 03:41 06/22/16 06/23/16 06/24/16 05:59 05:59 05:59 Intake Total 800 920 400 Output Total 2150 1600 700 Balance -9110 680 -300 Laboratory Tests 06/18/16 06/22/16 06/23/16 19:45 20:35 03:41 WBC 7.14 Hct 40.8 Plt Count 356 Glucose 168 H POC Glucose 169 H 06/23/16 06/23/16 06/23/16 07:05 10:55 15:27 WBC Hct Plt Count Glucose POC Glucose 195 H 190 H 186 H Physical Exam - Physical Exam General Appearance: alert Neck: supple Respiratory: rhonchi (For), prolonged expiration Cardiac/Chest: regular rate, rhythm, edema, systolic murmur, No gallop Abdomen: normal bowel sounds, non-tender, soft, No organomegaly Skin: warm/dry, No pallor Extremities: non-tender, pedal edema, No calf tenderness Neuro/Psych: alert, oriented x 3 ICD10 Worksheet Patient Problems: Problems Problem Status Onset CHF exacerbation Acute Dyspnea Acute
[2016-06-23] MEDS: INSULIN GLARGINE 100 UNITS/ML SYRINGE SC SCH (21:46)
[2016-06-24 05:10] LABS: % IMMATURE GRANULYOCYTES 0.3 % (0.0-1.1); ABSOLUTE IMMATURE GRANULOCYTES 0.02 10^3/uL (0.00-0.10); ADD DIFF? NO; ADD MORPH? NO; ADD SCAN? NO; ATYPICAL LYMPHOCYTE FLAG 10 (0-99); FRAGMENT RBC FLAG 0 (0-99); HEMATOCRIT 45.1 % (38.0-47.0); HEMOGLOBIN 14.4 g/dL (12.6-16.3); LEFT SHIFT FLG 0 (0-99); LIPEMIA HEMOLYSIS FLAG 80 (0-99); MEAN CELL HEMOGLOBIN 27.7 pg (27.9-34.1); MEAN CELL HEMOGLOBIN CONCENTR. 31.9 g/dL (32.4-36.7); MEAN CELL VOLUME 86.9 fL (81.5-99.8); MEAN PLATELET VOLUME 9.8 fL (8.7-11.7); PLATELET CLUMPS FLAG 10 (0-99); PLATELET COUNT 368 10^3/uL (150-400); RED BLOOD CELL COUNT 5.19 10^6/uL (4.18-5.33); RED CELL DISTRIBUTION WIDTH 14.1 % (11.5-15.2)
[2016-06-24 05:19] LABS: APTT 27.5 SEC (23.0-38.0); INR 0.91 (0.83-1.16); PROTIME(PATIENT) 12.2 SEC (12.0-15.0)
[2016-06-24 05:29] LABS: ALANINE AMINOTRANSFERASE 63 IU/L (9-52); ALBUMIN 4.2 g/dL (3.5-5.0); ALKALINE PHOSPHATASE 73 IU/L (38-126); ANION GAP 13 mEq/L (8-16); ASPARTATE AMINOTRANSFERASE 56 IU/L (14-46); BILIRUBIN,TOTAL 0.9 mg/dL (0.1-1.4); CALCIUM 10.3 mg/dL (8.5-10.4); CARBON DIOXIDE 24 mEq/l (22-31); CHLORIDE 101 mEq/L (97-110); GLOMERULAR FILTRATION RATE 58; GLUCOSE 183 mg/dL (70-100); POTASSIUM 5.3 mEq/L (3.5-5.2); SODIUM 138 mEq/L (134-144); TOTAL PROTEIN 7.9 g/dL (6.3-8.2)
[2016-06-24] MEDS ORDERED: BACITRACIN IRRIGATION/NS 50,000 UNITS/1,000 ML BTL IRR ONE (06:00)
[2016-06-24] MEDS ORDERED: DIAZEPAM 5 MG TAB PO ONE (06:00)
[2016-06-24] MEDS ORDERED: NS 1,000 ML IV ONE (06:00)
[2016-06-24] MEDS ORDERED: diphenhydrAMINE 25 MG CAP PO ONE (06:00)
[2016-06-24] MEDS: BISOPROLOL FUMARATE 5 MG TAB PO SCH (08:03)
[2016-06-24] MEDS: LISINOPRIL 20 MG TAB PO SCH (08:04)
[2016-06-24] MEDS ORDERED: LIDO/EPI 1% **for epidural** 30 ML SDV ONE (08:38)
[2016-06-24] MEDS ORDERED: fentaNYL 100 MCG/2 ML INJ ONE ×3 (08:38→11:49)
[2016-06-24] MEDS ORDERED: MIDAZOLAM 2 MG/2 ML VIAL ONE (08:38)
[2016-06-24] MEDS ORDERED: LIDOCAINE 1% 30 ML SDV ONE (08:38)
[2016-06-24] MEDS ORDERED: BUPIVACAINE 0.5% 30 ML SDV ONE (08:39)
[2016-06-24] MEDS ORDERED: VANCOMYCIN HCL/NORMAL SALINE 250 ML IV ONE (09:30)
[2016-06-24] MEDS ORDERED: LIDOCAINE 2% 100 MG/5 ML SYR IVP ONE (10:55)
[2016-06-24] MEDS ORDERED: PROPOFOL/EMULSION 500 MG/50 ML BOTTLE IV ONE (10:55)
[2016-06-24] MEDS: INSULIN LISPRO 100 UNIT/ML SC SCH ×3 (13:31→17:44)
[2016-06-24] MEDS: metFORMIN HCL 500 MG TAB PO SCH ×2 (13:32→17:45)
--- NOTE | 2016-06-24 13:47 | CPEKG ---
Heart Rate: 84 RR Interval: 714 P-R Interval: 160 QRSD Interval: 88 QT Interval: 416 QTC Interval: 492 P [place]: -3 QRS [place]: 3 T Wave [place]: 73 EKG Severity - ABNORMAL ECG - EKG Impression: SINUS RHYTHM EKG Impression: LEFT VENTRICULAR HYPERTROPHY EKG Impression: BORDERLINE PROLONGED QT INTERVAL Electronically Signed By: Wilder Ramos 24-Jun-2016 14:58:07
[2016-06-24] MEDS: ASPIRIN EC 81 MG TAB PO SCH (15:00)
--- NOTE | 2016-06-24 15:08 | HOSPPROG ---
Hospitalist Progress Note Assessment/Plan: * Acute on chronic systolic CHF EF 15% - non-ischemic (likely due to cocaine use) -s/p diuresis - PO lasix -watch potassium on spironolactone * Vtach -AICD placed today * DM II, uncontrolled - HgA1c 10.6 -Lantus up-titrated * Morbid obesity BMI 45 * SERENITY - CPAP intolerant * h/o cerebral aneurysm rupture * Asthma * Hypotension -will hold amlodipine Subjective: No new complaints. feels ready to go home. Objective: Vital Signs Temp Pulse Resp BP Pulse Ox 36.7 C 67 17 82/53 L 92 06/24/16 14:30 06/24/16 14:30 06/24/16 14:30 06/24/16 14:30 06/24/16 14:30 Laboratory Results 06/24/16 04:55 06/24/16 04:55 06/23/16 06/24/16 06/25/16 05:59 05:59 05:59 Intake Total 920 1290 Output Total 1600 1600 Balance -680 -310 PT 12.2 SEC (12.0-15.0) 06/24/16 04:55 INR 0.91 (0.83-1.16) 06/24/16 04:55 - Physical Exam Constitutional: no apparent distress, appears nourished, not in pain Cardiovascular: regular rate and rhythym, no murmur, rub, or gallop Respiratory: no respiratory distress, no rales or rhonchi, clear to auscultation Gastrointestinal: normoactive bowel sounds, soft, non-tender abdomen, no palpable masses Skin: no rashes or abrasions, no fluctuance, no induration Neurologic: AAOx3, sensation intact bilaterally Psychiatric: interacting appropriately, not anxious, not encephalopathic, thought process linear ICD10 Worksheet Patient Problems: Problems Problem Status Onset CHF exacerbation Acute Dyspnea Acute
[2016-06-24] MEDS: ACETAMINOPHEN 325 MG TAB PO PRN ×2 (15:15→20:01)
[2016-06-24] MEDS: SPIRONOLACTONE 25 MG TAB PO SCH (15:20)
[2016-06-24] MEDS: FUROSEMIDE 40 MG TAB PO SCH (15:20)
[2016-06-24] MEDS ORDERED: CARVEDILOL 6.25 MG TAB PO SCH (18:00)
[2016-06-24] MEDS: INSULIN GLARGINE 100 UNITS/ML SYRINGE SC SCH (22:02)
[2016-06-25] MEDS ORDERED: FUROSEMIDE 40 MG TAB PO SCH
[2016-06-25] MEDS ORDERED: glipiZIDE 5 MG TAB PO SCH
[2016-06-25] MEDS ORDERED: metFORMIN HCL 500 MG TAB PO SCH
[2016-06-25] MEDS: ACETAMINOPHEN 325 MG TAB PO PRN (03:49)
[2016-06-25 05:34] LABS: % IMMATURE GRANULYOCYTES 0.4 % (0.0-1.1); ABSOLUTE IMMATURE GRANULOCYTES 0.02 10^3/uL (0.00-0.10); ADD DIFF? NO; ADD MORPH? NO; ADD SCAN? NO; ATYPICAL LYMPHOCYTE FLAG 0 (0-99); FRAGMENT RBC FLAG 0 (0-99); HEMATOCRIT 44.3 % (38.0-47.0); HEMOGLOBIN 14.2 g/dL (12.6-16.3); LEFT SHIFT FLG 10 (0-99); LIPEMIA HEMOLYSIS FLAG 80 (0-99); MEAN CELL HEMOGLOBIN 27.9 pg (27.9-34.1); MEAN CELL HEMOGLOBIN CONCENTR. 32.1 g/dL (32.4-36.7); MEAN PLATELET VOLUME 10.2 fL (8.7-11.7); PLATELET CLUMPS FLAG 0 (0-99); PLATELET COUNT 307 10^3/uL (150-400); RED BLOOD CELL COUNT 5.09 10^6/uL (4.18-5.33); RED CELL DISTRIBUTION WIDTH 13.9 % (11.5-15.2)
[2016-06-25 05:54] LABS: ANION GAP 13 mEq/L (8-16); CALCIUM 9.6 mg/dL (8.5-10.4); CARBON DIOXIDE 22 mEq/l (22-31); CHLORIDE 103 mEq/L (97-110); CREATININE 0.9 mg/dL (0.6-1.0); GLOMERULAR FILTRATION RATE > 60; GLUCOSE 246 mg/dL (70-100); POTASSIUM 4.6 mEq/L (3.5-5.2); SODIUM 138 mEq/L (134-144)
[2016-06-25] MEDS: INSULIN LISPRO 100 UNIT/ML SC SCH ×2 (08:02→11:20)
[2016-06-25] MEDS: FUROSEMIDE 40 MG TAB PO SCH (08:03)
[2016-06-25] MEDS: metFORMIN HCL 500 MG TAB PO SCH (08:04)
[2016-06-25] MEDS: ASPIRIN EC 81 MG TAB PO SCH (08:05)
[2016-06-25] MEDS: LISINOPRIL 20 MG TAB PO SCH (08:05)
[2016-06-25 08:24] VITALS: TEMP 98.2
--- NOTE | 2016-06-25 08:53 | CPEKG ---
Heart Rate: 85 RR Interval: 706 P-R Interval: 156 QRSD Interval: 88 QT Interval: 408 QTC Interval: 486 P [place]: 68 QRS [place]: 11 T Wave [place]: 74 EKG Severity - ABNORMAL ECG - EKG Impression: SINUS RHYTHM EKG Impression: RIGHT ATRIAL ABNORMALITY EKG Impression: LEFT VENTRICULAR HYPERTROPHY EKG Impression: BORDERLINE PROLONGED QT INTERVAL Electronically Signed By: Wilder Ramos 25-Jun-2016 10:04:08
[2016-06-25] MEDS ORDERED: SPIRONOLACTONE 25 MG TAB PO SCH (09:00)
[2016-06-25] MEDS ORDERED: CARVEDILOL 6.25 MG TAB PO SCH (09:00)
--- NOTE | 2016-06-25 10:43 | EPPROC ---
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 Hence pt was a candidate for primary prevention ICD. PROCEDURE NOTE: Patient presented to the cardiac catherization laboratory in a fasting, postabsorptive state. The left infraclavicular area was prepped and draped in the usual sterile fashion. Moderate sedation administered. Lidocaine plus bupivacaine was used for local anesthesia. Left subclavian venography was performed by injection of iodinated contrast into the left antecubital vein. This was done to assure patency of the vein and also to assess for any anatomical aberrations. Using a combination of blunt and sharp dissection and electrocautery, the dissection was carried down to the prepectoral fascia. All bleeding was controlled with electrocautery. The pocket was packed with gauze soaked in antibiotic solution. Fluoroscopy was utilized during the entire procedure for venous access and placement of the leads. Using a direct stick technique the left extrathoracic axillary vein was accessed with 1 sticks using the modified Seldinger technique. Placement of the guide wires into the venous system was confirmed by low pressure blood return and also by visualizing the guide wires advancing into the inferior vena cava. A purse string suture was applied around the guide wires. #9 Fr sheath was advanced under fluoroscopic guidance over the guide wires. An active fixation ventricular ICD lead was advanced into the right ventricular apex and screwed in place. The peel away sheaths was removed. Pacing thresholds , sensing parameters and leads impedances were measured. There was no diaphragmatic stimulation at maximum output. The leads were sutured to the prepectoral fascia with 3 non-absorbable sutures. Pocket created and flushed using antibiotic solution The gauze packing was removed from the ICD pocket. The pocket was again inspected for any bleeding. The lead was attached to the ICD securely. The ICD was inserted into the pocket and secured in place with a nonabsorbable suture. Fluoroscopy was performed in VALDES and SUSI planes to verify right sided placement of the leads. Also fluoroscopy of the ICD pocket was performed. The ICD pocket was closed in 3 layers with absorbable monocryl sutures. Appropriate dressing was applied. The patient left the cardiac catheterization laboratory in stable condition. Serial Numbers: * Device ST Jaylan Fortify Assura SN [id number] * Ventricular Lead St Jaylan Durata SN [id number] Stimulation Thresholds & Impedance Measurements: * Ventricular Lead 13.8mV, 0.5@0.5ms, 564Ohms Pacing Parameters: * Pacing mode VVI * Lower rate 40 Tachycardia therapy parameters: VF zone: Detection 214 bpm All therapies 40Joule VT zone: Detection 182bpm First therapy burst pacing at 84% tachycardia CL, 8 beats,2 sequences Subsequent therapies 40 Joule Patient Problems: Problems Problem Status Onset CHF exacerbation Acute Dyspnea Acute
--- NOTE | 2016-06-25 11:30 | SOAPPROG ---
[facility] Progress Note Assessment/Plan: Assessment: 1. Cardiomyopathy 2. Obesity 3. diabetes mellitus 4. He weakness 5. HFREF ; ACUTE ON CHRONIC Plan: 06/20/16 10:46 06/21/16 16:09 1. Cardiomyopathy 2. Obesity 3. Diabetes mellitus 4. Weakness 5.HFREF ; acute on chronic 6 hypertension 06/22/16 14:30 06/22/16 14:34 06/22/16 14:35 06/23/16 15:54 06/25/16 11:27 1. Dilated cardiomyopathy 2.HFREF 3. Obesity 4. Diabetes mellitus 5. Hypertension 6. ICD placement. She is doing well on her current medications. She has diuresed well. She has no new complaints. She feels much stronger than when she came she has lost over 4 kg during this hospitalization. She very much wants to leave the hospital and will be discharged today. She is going to follow up with the Heart failure service and I will see her down the road once she stabilizes or she can stay with the heart failure service. She is also going to pay close attention to her shoulder her device she is going to follow the instructions well. She is going to come to clinic for check on that and that is being arranged. She is on good medication at this time and when she comes Heart failure Clinic next week she will get her labs drawn and they will do a basic metabolic panel and CBC. If she develops any new troubles bleeding problems with her arm any neurologic complaints or shortness of breath significant palpitations weakness she needs to come in to be checked. She is on strong medications and I have reviewed this with her carefully and I think she has a good understanding that she has to pay very close attention things and she has to follow up with visits. She is way overweight and this is a problem will kill her if her heart does not do it sooner and it is something that she can have an impact on it is something that she can address. We have gone over this extensively. All her questions have been answered. Her prognosis has to be guarded but she wants to leave home and she is currently stable. I have touch base with our mid-level and with her hospitalist. Subjective: She has no chest pain. She feels much less shortness of breath. She is not having fever chills She is not having nausea or vomiting No hot swollen joints No fever no rashes She is not having any bleeding. She feels like she can walk around much better. She is not having any other troubles right at this time. She is not dizzy. She is not lightheaded. Objective: Vital Signs Temp Pulse Resp BP Pulse Ox 36.8 C 85 18 114/71 97 06/25/16 08:00 06/25/16 08:16 06/25/16 08:00 06/25/16 08:16 06/25/16 08:00 Laboratory Results 06/25/16 03:48 06/25/16 03:48 06/24/16 06/25/16 06/26/16 05:59 05:59 05:59 Intake Total 1290 300 Output Total 1600 602 Balance -310 -302 PT 12.2 SEC (12.0-15.0) 06/24/16 04:55 INR 0.91 (0.83-1.16) 06/24/16 04:55 Selected Entries 06/18/16 06/24/16 21:33 05:04 Weight 127 kg 123.8 kg Physical Exam - Physical Exam General Appearance: alert, mild distress Neck: non-tender Respiratory: rhonchi, prolonged expiration Cardiac/Chest: regular rate, rhythm, systolic murmur, No edema Abdomen: normal bowel sounds, non-tender, soft, No organomegaly Skin: No cyanosis, No diaphoresis Extremities: non-tender, No calf tenderness Neuro/Psych: alert, normal mood/affect (Her left arm is in a sling. She has had her ICD placed. There is no tenderness. There is no abnormal swelling.) ICD10 Worksheet Patient Problems: Problems Problem Status Onset CHF exacerbation Acute Dyspnea Acute
[2016-06-25 12:18] VITALS: BP 129/92; PULSE 84; RESP 19; O2SAT 96
--- NOTE | 2016-06-25 18:14 | GDS ---
DISCHARGE DIAGNOSES: 1. Acute on chronic systolic congestive heart failure. Ejection fraction 15%. 2. Nonischemic cardiomyopathy likely due to history of cocaine use. 3. Ventricular tachycardia, status post AICD. 4. Diabetes type 2 uncontrolled. 5. Morbid obesity. BMI 45. 6. Obstructive sleep apnea. CPAP intolerant. 7. History of cerebral aneurysm rupture. 8. Asthma. HISTORY: The patient is a 51-year-old female, who presented in decompensated congestive heart failu re. Her ejection fraction is only 15%. Her CHF is nonischemic, and she has an extensive history of drug abuse including crack cocaine which was felt to be the etiology. On her telemetry here, she w as noted to have occasional V tach and with her low ejection fraction that was indication for an AIC D which was placed on the day prior to discharge. She was diuresed with Lasix and is euvolemic at t he time of discharge. Blood pressures ran on the low side so we discontinued her amlodipine. Diabe ji medications were adjusted to improve control given her hemoglobin A1c of 10.6. DISCHARGE MEDICATIONS: Please see computer record for full detailed list. New medications: 1. Lasix increased to 40 mg p.o. b.i.d. 2. Metformin increased to 1000 mg p.o. b.i.d. 3. Glipizide started at 5 mg p.o. daily. Discontinued medications: 1. Amlodipine 10 mg p.o. daily. She will continue on her Coreg, lisinopril, aspirin, and spironolactone as she was prior to admissio n. DISCHARGE INSTRUCTIONS: 1. Follow up with Dr. Harjinder Cobb in 1 week. 2. Appointment made at [facility] in [address] Marcy Owens her primary care doctor. Greater than 30 minutes' time was spent arranging this discharge. Patient seen examined by me on day of discharge. /[id number]/MODL
== END 2016-06-25 14:27 | disposition home or self-care (01) | DRG 227 ==
LOC: F1N 21:32 → OBSVTOIN 06-19 08:14 → F2W 06-20 14:38
PROVIDERS: ADMIT Internal Medicine; ATTEND Internal Medicine
PROC: 02HK3KZ Insertion of Defibrillator Lead into Right Ventricle, Percutaneous Approach (ICD-10-PCS; principal; 2016-06-24)
PROC: 0JH608Z Insertion of Defibrillator Generator into Chest Subcutaneous Tissue and Fascia, Open Approach (ICD-10-PCS; principal; 2016-06-24)
DX: I50.23 Acute on chronic systolic (congestive) heart failure (principal); I11.0 Hypertensive heart disease with heart failure; I42.9 Cardiomyopathy, unspecified; E11.9 Type 2 diabetes mellitus without complications; G47.33 Obstructive sleep apnea (adult) (pediatric); J45.909 Unspecified asthma, uncomplicated; E66.01 Morbid (severe) obesity due to excess calories; Z68.42 Body mass index [BMI] 45.0-49.9, adult; Z95.810 Presence of automatic (implantable) cardiac defibrillator; Z59.0 Homelessness
CPT/HCPCS: 96374; C1722; C1895; G0378; J1815; J2001; J2250; J2704; J3010; J3370

== ENCOUNTER 2016-07-15 02:17 | Observation (INO) | payer MEDICAID ==
[2016-07-15] MEDS ORDERED: IPRATROPIUM/ALBUTEROL 3 ML DEYVIAL IH ONE (02:29)
[2016-07-15 02:33] LABS: % IMMATURE GRANULYOCYTES 0.8 % (0.0-1.1); ABSOLUTE IMMATURE GRANULOCYTES 0.06 10^3/uL (0.00-0.10); ABSOLUTE NRBC COUNT 0.02 10^3/uL (0-0.01); ADD DIFF? NO; ADD MORPH? NO; ADD SCAN? NO; ATYPICAL LYMPHOCYTE FLAG 30 (0-99); FRAGMENT RBC FLAG 0 (0-99); HEMATOCRIT 41.6 % (38.0-47.0); HEMOGLOBIN 13.4 g/dL (12.6-16.3); LEFT SHIFT FLG 10 (0-99); LIPEMIA HEMOLYSIS FLAG 80 (0-99); MEAN CELL HEMOGLOBIN 28.3 pg (27.9-34.1); MEAN CELL HEMOGLOBIN CONCENTR. 32.2 g/dL (32.4-36.7); MEAN CELL VOLUME 87.9 fL (81.5-99.8); MEAN PLATELET VOLUME 10.1 fL (8.7-11.7); NRBC-AUTO% 0.3 % (0.0-0.2); PLATELET CLUMPS FLAG 0 (0-99); PLATELET COUNT 311 10^3/uL (150-400); RED BLOOD CELL COUNT 4.73 10^6/uL (4.18-5.33); RED CELL DISTRIBUTION WIDTH 14.3 % (11.5-15.2)
--- NOTE | 2016-07-15 02:35 | EDPHY ---
H & P Time Seen by Provider: 07/15/16 02:21 HPI/ROS: Chief complaint: Shortness of breath HPI: 51-year-old female with a history of CHF and obstructive sleep apnea is being brought in from the long term this morning with complaints of shortness of breath. Patient normally sleeps with a CPAP machine but has not have 1 available to her at this time. States the last 2 nights she has been increasing shortness of breath, worse when she lays down. She has been using a friend's oxygen concentrator with some relief. [facility] was called and they noted that she had an oxygen saturation in the 70s, however this was on a poor waveform. She has a productive cough of clearish sputum. No chest pain. No fevers or chills. No nausea or vomiting. Patient was recently admitted to the hospital and discharged on the 25 of June for decompensated heart failure , AICD placement for in ventricular tachycardia, and poorly controlled type 2 diabetes. Patient also states she has not been taking her diabetes medication as this was lost with her boyfriend. ROS: 10 point Review of Systems is negative except as noted in the HPI. Past medical history: Congestive heart failure with an ejection fraction of 15% Nonischemic cardiomyopathy secondary to substance abuse Ventricular tachycardia status post AICD placement Poorly controlled type 2 diabetes Morbid obesity Obstructive sleep apnea Cerebral aneurysm rupture Asthma Physical exam: Gen: Awake, Alert, No Distress, morbidly obese HEENT: Nose: no rhinorrhea Eyes: PERRLA, EOMI Mouth: Moist mucosa Neck: Supple, no JVD Chest: nontender, mild diffuse expiratory wheeze with crackles at the left base Heart: S1, S2 normal, no murmur Abd: Soft, non-tender, no guarding Back: no CVA tenderness, no midline tenderness Ext: no edema, non-tender Skin: no rash Neuro: CN II-XII intact, Sensation grossly intact, Strength 5/5 in bilateral upper and lower extremities - Medical/Surgical History Hx Asthma: Yes Hx Chronic Respiratory Disease: Yes Hx Diabetes: Yes Hx Cardiac Disease: Yes Hx Renal Disease: No Hx Cirrhosis: No Hx Alcoholism: No Hx HIV/AIDS: No Hx Splenectomy or Spleen Trauma: No Other PMH: CHF, DIABETES, SERENITY;HTN; BRAIN ANEURYSM 1 YR [id number]; COCAINE ABUSE X 25YRS AGO--QUIT 3 YRS AGO;ASTHMA A CHILD - Social History Smoking Status: Former smoker Constitutional: Initial Vital Signs Temperature (C) 36.8 C 07/15/16 02:29 Heart Rate 100 07/15/16 02:29 Respiratory Rate 40 H 07/15/16 02:29 Blood Pressure 160/100 H 07/15/16 02:29 O2 Sat (%) 89 L 07/15/16 02:29 O2 Delivery Mode Room Air O2 (L/minute) 2 Allergies/Adverse Reactions: ceftriaxone sodium [From Rocephin] Allergy (Verified 07/15/16 02:28) Home Medications: Medication Instructions Recorded Aspirin EC [Aspirin EC 81 mg (*)] 81 mg PO DAILY 06/18/16 Lisinopril [Zestril 20 mg (*)] 20 mg PO DAILY 06/18/16 Carvedilol [Coreg (*)] 6.25 mg PO BIDMEAL 06/24/16 Spironolactone [Aldactone 25 MG 25 mg PO DAILY 06/24/16 (*)] Furosemide [Lasix 40 MG (*)] 40 mg PO BID@0900,1500 #60 tab 06/25/16 Metformin HCl [Metformin 1000 mg] 1,000 mg PO BID #60 tablet 06/25/16 glipiZIDE [Glipizide] 5 mg PO DAILY #30 tablet 06/25/16 Medical Decision Making - Diagnostics Imaging: Chest x-ray: Cephalization. No effusion. No focal infiltrate per cardiomegaly. AICD in place. Interpreted by me. ED Course/Re-evaluation: Complicated 51-year-old female with a history of CHF, ejection fraction 15%, nonischemic cardiomyopathy and diabetes. Tachypneic and hypoxemic here. Some diffuse wheezes with some fine crackles at the left base. Chest x-ray shows no large infiltrate or effusion. Likely has decompensation secondary to her lack of BiPAP for her sleep apnea and worsening of her congestive heart failure. I have discussed with Dr. Francisco Javier Miguel, hospitalist. Will admit to the [facility] for further care. - Data Points Laboratory Results: Laboratory Results 07/15/16 02:23 07/15/16 02:23 07/15/16 07/15/16 02:23 02:23 WBC 7.77 10^3/uL 10^3/uL (3.80-9.50) RBC 4.73 10^6/uL 10^6/uL (4.18-5.33) Hgb 13.4 g/dL g/dL (12.6-16.3) Hct 41.6 % % (38.0-47.0) MCV 87.9 fL fL (81.5-99.8) MCH 28.3 pg pg (27.9-34.1) MCHC 32.2 g/dL L g/dL (32.4-36.7) RDW 14.3 % % (11.5-15.2) Plt Count 311 10^3/uL 10^3/uL (150-400) MPV 10.1 fL fL (8.7-11.7) Neut % (Auto) 52.6 % % (39.3-74.2) Lymph % (Auto) 37.2 % % (15.0-45.0) [place] % (Auto) 6.7 % % (4.5-13.0) Eos % (Auto) 2.2 % % (0.6-7.6) Baso % (Auto) 0.5 % % (0.3-1.7) Nucleat RBC Rel Count 0.3 % H % (0.0-0.2) Absolute Neuts (auto) 4.09 10^3/uL 10^3/uL (1.70-6.50) Absolute Lymphs (auto) 2.89 10^3/uL 10^3/uL (1.00-3.00) Absolute Monos (auto) 0.52 10^3/uL 10^3/uL (0.30-0.80) Absolute Eos (auto) 0.17 10^3/uL 10^3/uL (0.03-0.40) Absolute Basos (auto) 0.04 10^3/uL 10^3/uL (0.02-0.10) Absolute Nucleated RBC 0.02 10^3/uL H 10^3/uL (0-0.01) Immature Gran % 0.8 % % (0.0-1.1) Immature Gran # 0.06 10^3/uL 10^3/uL (0.00-0.10) Sodium 138 mEq/L mEq/L (134-144) Potassium 4.0 mEq/L mEq/L (3.5-5.2) Chloride 103 mEq/L mEq/L (97-110) Carbon Dioxide 22 mEq/l mEq/l (22-31) Anion Gap 13 mEq/L mEq/L (8-16) BUN 12 mg/dL mg/dL (7-23) Creatinine 0.8 mg/dL mg/dL (0.6-1.0) Estimated GFR > 60 Glucose 343 mg/dL H mg/dL (70-100) Calcium 9.2 mg/dL mg/dL (8.5-10.4) Medications Given: Discontinued Medications Albuterol/Ipratropium (Duoneb) 3 ml IH EDNOW ONE Stop: 07/15/16 02:30 Last Admin: 07/15/16 02:43 Dose: 3 ml Departure - Departure Disposition: [facility] Inpatient Acute Clinical Impression: CHF exacerbation, Dyspnea Condition: Fair Referrals: Patient,NotPresent [Primary Care Provider] - As per Instructions
[2016-07-15 02:42] LABS: ANION GAP 13 mEq/L (8-16); CALCIUM 9.2 mg/dL (8.5-10.4); CARBON DIOXIDE 22 mEq/l (22-31); CHLORIDE 103 mEq/L (97-110); CREATININE 0.8 mg/dL (0.6-1.0); GLOMERULAR FILTRATION RATE > 60; GLUCOSE 343 mg/dL (70-100); SODIUM 138 mEq/L (134-144)
--- NOTE | 2016-07-15 03:15 | CPEKG ---
Heart Rate: 92 RR Interval: 652 P-R Interval: 148 QRSD Interval: 92 QT Interval: 412 QTC Interval: 510 P [place]: 61 QRS [place]: 4 T Wave [place]: -19 EKG Severity - ABNORMAL ECG - EKG Impression: SINUS RHYTHM EKG Impression: LEFT VENTRICULAR HYPERTROPHY EKG Impression: BORDERLINE T ABNORMALITIES, INFERIOR LEADS EKG Impression: BORDERLINE PROLONGED QT INTERVAL Electronically Signed By: Layo Benites 15-Jul-2016 06:04:22
[2016-07-15] MEDS ORDERED: ONDANSETRON DISINTEGRATING 4 MG TAB PO PRN (03:28)
[2016-07-15] MEDS ORDERED: ACETAMINOPHEN 325 MG TAB PO PRN (03:28)
[2016-07-15] MEDS ORDERED: oxyCODONE IR 5 MG TAB PO PRN (03:28)
[2016-07-15] MEDS ORDERED: FUROSEMIDE 40 MG/4 ML VIAL IVP ONE (03:28)
[2016-07-15] MEDS ORDERED: IPRATROPIUM/ALBUTEROL 3 ML DEYVIAL IH PRN (03:30)
[2016-07-15] MEDS ORDERED: D50W 25 GM/50 ML SYR IVP PRN (03:33)
[2016-07-15 03:51] LABS: TROPONIN I 0.028 ng/mL (0-0.034)
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
[2016-07-15 07:09] LABS: ANION GAP 10 mEq/L (8-16); CALCIUM 8.6 mg/dL (8.5-10.4); CARBON DIOXIDE 27 mEq/l (22-31); CHLORIDE 101 mEq/L (97-110); CREATININE 0.7 mg/dL (0.6-1.0); GLOMERULAR FILTRATION RATE > 60; GLUCOSE 321 mg/dL (70-100); POTASSIUM 3.7 mEq/L (3.5-5.2); SODIUM 138 mEq/L (134-144)
[2016-07-15] MEDS ORDERED: INSULIN LISPRO 100 UNIT/ML SC SCH (08:00)
[2016-07-15] MEDS ORDERED: ENOXAPARIN 40 MG/0.4 ML SYR SC SCH (09:00)
[2016-07-15] MEDS ORDERED: FUROSEMIDE 40 MG/4 ML VIAL IVP SCH (09:00)
[2016-07-15 09:14] VITALS: BP 119/82; TEMP 98.6
[2016-07-15] MEDS ORDERED: IOPAMIDOL (ISOVUE 370) 100 ML BTL IV ONE (10:53)
--- NOTE | 2016-07-15 11:34 | GCON ---
[f rep st] CONSULTATION CHIEF COMPLAINT: Shortness of breath. HISTORY OF PRESENT ILLNESS: The patient has developed severe shortness of breath. She was at her place where she is living and just all of a sudden felt like she was choking and could not catch her breath. She came into the emergency room at [facility] and has been treated with IV Lasix. She does not have a cold. She does not have upper respiratory tract symptoms. She does not have fever, chills, or cough. She has been taking her medications. She has been living at the residential. They have allowed her to stay there, so she is there on an extended stay and able to take her medications and do reasonably well. She was last at [facility] on 06/19/2016 when she came in with chronic shortness of breath that had gotten much worse. She chronically has had problems with having to use lots of folded blankets to sleep to raise her head at the residential since they do not have many pillows. She has gained a significant amount of weight, but her weight has been going down on her diuretic therapy. She is being followed by the congestive heart failure service at [facility]. She has not had jaw pain or arm pain. She has not had pleuritic chest pain. She has not had nausea or vomiting. She has not had lightheadedness or dizziness. The patient says that the last several days she has had more shortness of breath. She did not have oxygen at the residential, but a friend did, so she used the oxygen. Her oxygen saturation when the emergency transportation staff got to the residential was 70. She is a woman who was in the hospital for congestive heart failure. She had an AICD placement, and she has multiple other major medical problems including diabetes, and she has been unable to take her diabetic medication. Her boyfriend somehow lost her diabetes medicine. She is massively obese. She has dyslipidemia. She has obstructive sleep apnea. She has had a history of cerebral aneurysm rupture recently with a coil placement in [place] earlier this winter. She is quite inactive. She has a profound weakness from inactivity. She has a history of using cocaine in the past. She has known systolic heart failure with an ejection fraction of 15%. She had ventricular tachycardia when she was in the hospital and received her AICD that has been functioning well. She has longstanding asthma. The patient had a reasonably recent coronary angiogram at another hospital and was told her coronaries were fine. She is not really sure when that was, and we were not able to get a copy of those records the last time she was here. She used cocaine for over 25 years. She has a real problem holding onto CPAP machines and has not been able to use one lately. She has not had atrial arrhythmias. She has not had syncope or near-syncope. CARDIAC RISK FACTORS: In summary, her cardiac risk factors are positive for diabetes, massive obesity, hypertension, hyperlipidemia. She does not have a history of smoking, hyperuricemia, family history of premature coronary artery disease. FAMILY HISTORY: Her mother and father both had congestive heart failure. There is no history of premature coronary disease in her family. ALLERGIES: Rocephin. HOME MEDICATIONS: Include aspirin, lisinopril, carvedilol, spironolactone, furosemide, metformin, and glipizide. She has not been taking her diabetic medicines, and she does come in now with an elevated blood sugar. SURGICAL HISTORY: Includes a brain aneurysm that was clipped less than 12 months ago. REVIEW OF SYSTEMS: Negative except as noted above essentially and is also listed in the record. The cerebral aneurysm ruptured and was treated in [place]. SOCIAL HISTORY: She was born in [facility]. She now is living at the residential because she has been ill; otherwise, she was moving in and out of the residential on a daily basis. She is trying very hard to get social security disability, but she has not been able to obtain that. She does have Medicaid. Her life is quite difficult. She has never smoked cigarettes. She has done cocaine for over 20 years but has stopped some years ago. She cannot exercise at all. She is really tired. She is significantly overweight. She often has asthma, and she has sleep apnea as well. She recently moved to [place]. She had been down in the [facility] area in the [place] of [place] and been getting her medical care down by [facility]. She has a son who is in this area and would visit her on a regular basis during her last hospitalization, and she has a boyfriend who is with her most all the time who just had bypass surgery himself 10 days ago. He also is living at the residential. PHYSICAL EXAMINATION: GENERAL: The patient's heart rate is 77, and she is in sinus rhythm. VITAL SIGNS: Respiratory rate is 20, blood pressure 150/77, oxygen saturation 90%. HEENT: Pupils equal and reactive. Mucous membranes and mouth moist. NECK: Supple. LUNGS: Rhonchi bilaterally. No rales, wheezing, or dullness. ABDOMEN: Soft, nontender without masses. Very large. CARDIOVASCULAR: Reveals PMI not palpable. She has an S1, S2 very distant. No S3, S4. EXTREMITIES: She has edema bilaterally. She is very overweight. Her AICD pacemaker site is excellent. CVA nontender. SKIN: Shows age-related changes. PSYCH: No obvious anxiety or depression. She is mild depressed sitting in the hospital bed sitting upright and short of breath. STUDIES: Chest x-ray shows borderline interstitial edema, early congestive failure. BNP is in the 1400 range. Her white count is 7.77, hematocrit 41, platelets 311. Sodium 138, potassium 3.7, chloride 101 BUN 11, creatinine 0.7, glucose 321. BNP was 1480 and then 1490. Her D-dimer is elevated at 1.85. ASSESSMENT AND PLAN: 1. Acute on chronic congestive heart failure; heart failure with reduced ejection fraction. 2. Dilated cardiomyopathy. 3. Severe acute shortness of breath. 4. Elevated D-dimer. 5. Massive obesity. 6. Chronic obstructive pulmonary disease. 7. Sleep apnea. 8. Dyslipidemia. 9. Diabetes mellitus. 10. Profound weakness. The last time patient was in the hospital, she diuresed well and went home. She has been taken care of at the residential which has done a great job of providing her space because of her illness. She is a woman who is totally and permanently disabled at this point in time. She certainly should qualify for Medicare on that basis. During her last hospitalization, she had nonsustained ventricular tachycardia, and she has had long-standing dilated cardiomyopathy with an ejection fraction in the 15% to 20% range for over a year despite optimal medical management. She received an AV implantable cardioverter-defibrillator for primary prevention. She did not have any indication for secondary prevention. The device she received was a [employer] Fortify Assura, serial #[id number]. The ventricular lead was a [employer] Durata, serial #[id number]. The pacing mode was VVI, and the lower rate was 40. The patient now comes back to the hospital with an elevated D-dimer, and we need to rule out pulmonary embolic disease. That is certainly a possibility given her inability to get around much and to be very active, so that evaluation will be ongoing. Also she has some worse heart failure so she is going to be treated with IV Lasix in the emergency room and now has received IV Lasix on the floor as well. She is feeling much better already. Her first troponin was negative, and we are not going to do serial troponins as she has a negative cath which sounds like it was less than a year ago, and there has been no sign of any elevated troponins on her last admission. There was always an issue about doing an MRI on her, but we never could figure out if she had any metal in her clip that was put in for cerebral aneurysm, so that has not been done and will not be done until we can make sure that clip that she does have does not contain metal. I have spoken with her boyfriend who is with her all the time, and he has gotten through his own bypass surgery and is improving. All his questions have been answered. If they develop any new issues that matter, they will get back in touch with us, but for now, I would give her ongoing treatment for her diabetes which is out of control since she is not taking her medicine. Work hard on diet. Encourage her to try to slowly exercise, do physical therapy as much as we possibly can, try to figure out how to get her CPAP machine to treat her sleep apnea. She has a hard time getting any oxygen at the residential, so that is going to be an ongoing issue for her. I also do believe that she is totally and permanently disabled and that Medicare services and social security disability would make her life significantly better. I have discussed her case with the heart failure service, the nursing staff, and the hospitalist. /[id number]/MODL MTDD
[2016-07-15 12:13] VITALS: PULSE 110; RESP 24; O2SAT 87
--- NOTE | 2016-07-15 12:39 | PDDCSUM ---
Discharge Summary Discharge Summary: DISCHARGE SUMMARY FOLLOW-UP ITEMS: Creatinine BUN and lytes next week DATE OF ADMISSION: 07/15/2016 DATE OF DISCHARGE: 07/15/2016 DISCHARGE DIAGNOSES: 1. Acute systolic congestive heart failure exacerbation 2. Nonischemic cardiomyopathy 3. Diabetes mellitus type 2 4. Chronic SERENITY CONSULTATIONS: Cardiology by Dr. Nguyen PROCEDURES / IMAGING: Chest x-ray demonstrating interstitial infiltrate, CT angiograms demonstrating no evidence of pulmonary embolism CHIEF COMPLAINT: Acute shortness of breath SUBJECTIVE: Patient reports that her shortness of breath has improved PHYSICAL EXAM ON DISCHARGE: Systolic blood pressure 130-140, heart rate in the 90s, SpO2 89% on room air with respiratory rate of 40, improved with 2 L nasal cannula, morbidly obese, faint inspiratory crackles in the bilateral bases without any expiratory wheezes or bronchial breath sounds, mild bilateral lower extremity edema LABS ON DISCHARGE: Creatinine 0.7, potassium 3.7, serum sodium 138, serum bicarb 27, BNP 1500 HOSPITAL COURSE BY PROBLEM: 1. Acute systolic congestive heart failure exacerbation. Evidenced by interstitial infiltrates pulmonary vascular congestion on chest x-ray, BNP of 1500, symptomatic shortness of breath, weight gain of 13 kg since last presentation, ejection fraction 15%.. Most likely etiology is dietary indiscretions, patient reports that she has been adherent to her home medications. She was seen in consultation by Dr. Nguyen, he recommended close outpatient follow-up and no further cardiovascular workup at this time. We did recommend that she increase her Lasix to 80 mg twice daily and continue her beta -eliana, continue her Aldactone, repeat creatinine BUN and lytes next week with rapid follow up with her air duct mechanic. She will require ongoing supplemental oxygen and this has been ordered for her prior to discharge. 2. Nonischemic cardiomyopathy. Patient has been seen at [facility] in the past, ejection fraction is 15%, continue beta-eliana, Aldactone, Lasix, ALEXIS- inhibitor. 3. Diabetes mellitus type 2. Continue metformin and sulfonylureas. 4. Chronic SERENITY. Patient requires assistance with obtaining CPAP, she should pursue this through her primary cardiology office. DISCHARGE MEDICATIONS: Please see official discharge medication reconciliation sheet in chart , increase in Lasix to 80 mg twice daily. DISCHARGE INSTRUCTIONS: Patient will have an outpatient appointment at [facility] scheduled for early next week, repeat creatinine BUN and lytes prior to appointment. Please see original history and physical by Dr. Miguel for full details of patient's presentation.
[2016-07-15 14:25] LABS: GLUCOSE 375 mg/dL (70-100)
== END 2016-07-15 16:06 | disposition home or self-care (01) ==
LOC: EDUNIT# → UNDOADMOB 03:05 → F1N 04:00
PROVIDERS: ADMIT Student in an Organized Health Care Education/Training Program; ATTEND Student in an Organized Health Care Education/Training Program
DX: I50.21 Acute systolic (congestive) heart failure (principal); I42.9 Cardiomyopathy, unspecified; E11.9 Type 2 diabetes mellitus without complications; G47.33 Obstructive sleep apnea (adult) (pediatric); J45.909 Unspecified asthma, uncomplicated; E66.01 Morbid (severe) obesity due to excess calories; Z68.42 Body mass index [BMI] 45.0-49.9, adult; Z87.891 Personal history of nicotine dependence; Z95.810 Presence of automatic (implantable) cardiac defibrillator
CPT/HCPCS: 71020; 71275; 93005; G0378; 82947-QW; J1650; J1815; Q9967

== ENCOUNTER 2016-08-23 06:08 | Emergency (ER) | payer MEDICAID ==
--- NOTE | 2016-08-23 06:24 | EDPHY ---
H & P HPI/ROS: Chief Complaint: Shortness of breath HPI: 51-year-old woman with a history of congestive heart failure, diabetes and sleep apnea. This morning he went to get dressed and began feeling short of breath. She says that the she normally takes her oxygen with her but this morning did not have the portable tank so she was not wearing her oxygen and began feeling short of breath after about 10 minutes being off of oxygen. She normally wears 3 L of oxygen continuously. Denies any recent cough but did have some subjective fever last night. No nausea or vomiting. No chest pain. Has not noted any recent weight gain or weight loss. Did have an AICD put in about 1 month ago in this hospital. ROS: 10 point Review of Systems is negative except as noted in the HPI. PMH: Congestive heart failure, type 2 diabetes, sleep apnea, recent AICD placement Medications: Lisinopril, amlodipine, spironolactone, metformin, glipizide, aspirin, furosemide, carvedilol Allergies: Ceftriaxone Social History: No smoking, no alcohol, no recreational drug use Family History: non-contributory Physical Exam: Gen: Awake, Alert, mild distress, obese HEENT: Nose: no rhinorrhea Eyes: PERRLA, EOMI Mouth: Moist mucosa Neck: Supple, no JVD Chest: nontender, diffuse expiratory wheezes with some fine crackles at the bilateral bases Heart: S1, S2 normal, no murmur Abd: Soft, non-tender, no guarding Back: no CVA tenderness, no midline tenderness Ext: 3+ pitting edema edema, non-tender Skin: no rash Neuro: CN II-XII intact, Sensation grossly intact, Strength 5/5 in bilateral upper and lower extremities - Medical/Surgical History Hx Asthma: Yes Hx Chronic Respiratory Disease: Yes Hx Diabetes: Yes Hx Cardiac Disease: Yes Hx Renal Disease: No Hx Cirrhosis: No Hx Alcoholism: No Hx HIV/AIDS: No Hx Splenectomy or Spleen Trauma: No Other PMH: CHF, DIABETES, SERENITY;HTN; BRAIN ANEURYSM 1 YR [id number]; COCAINE ABUSE X 25YRS AGO--QUIT 3 YRS AGO;ASTHMA A CHILD - Social History Smoking Status: Current some day smoker Constitutional: Initial Vital Signs Temperature (C) 37 C 08/23/16 06:32 Heart Rate 101 H 08/23/16 06:32 Respiratory Rate 24 H 08/23/16 06:32 Blood Pressure 158/107 H 08/23/16 06:32 O2 Sat (%) 92 08/23/16 06:32 O2 Delivery Mode Nasal Cannula O2 (L/minute) 3 Allergies/Adverse Reactions: ceftriaxone sodium [From Rocephin] Allergy (Verified 08/04/16 09:19) Home Medications: Medication Instructions Recorded Aspirin EC [Aspirin EC 81 mg (*)] 81 mg PO DAILY 06/18/16 Lisinopril [Zestril 20 mg (*)] 20 mg PO DAILY 06/18/16 Carvedilol [Coreg (*)] 6.25 mg PO BIDMEAL 06/24/16 Spironolactone [Aldactone 25 MG 25 mg PO DAILY 06/24/16 (*)] glipiZIDE [Glipizide] 5 mg PO DAILY #30 tablet 06/25/16 Furosemide [Lasix 40 MG (*)] 80 mg PO BID@0900,1500 #60 tab 07/15/16 metFORMIN HCL [Glucophage 500 mg 1,000 mg PO BIDMEAL 07/15/16 (*)] Medical Decision Making - Diagnostics Imaging Results: Interstitial infiltrates consistent with congestive heart failure, unchanged compared to prior chest x-ray. Imaging: I viewed and interpreted images myself ED Course/Re-evaluation: Patient initially presenting complaining of shortness of breath when she woke this morning. Patient feeling significantly improved after being on oxygen. Initially she had stated that she was short of breath on awakening but now is telling me that she became short of breath after she took her oxygen off in with put her clothes on and has been off her oxygen for about 5-10 minutes. Since being here and on oxygen here she states she is feeling much better. Chest x-ray shows interstitial CHF findings which were consistent with her prior. She is no longer in any acute distress. She is sitting comfortably in the ambulating without difficulty. She has her oxygen here. Will continue to monitor with plans of discharged home with follow-up with cardiology but I do not think there is any acute exacerbation at this time given her symptoms all began when she went off of her chronic oxygen. - Data Points Laboratory Results: Laboratory Results 08/23/16 06:30 08/23/16 08/23/16 06:30 06:30 WBC 6.29 10^3/uL 10^3/uL (3.80-9.50) RBC 4.82 10^6/uL 10^6/uL (4.18-5.33) Hgb 13.2 g/dL g/dL (12.6-16.3) Hct 41.8 % % (38.0-47.0) MCV 86.7 fL fL (81.5-99.8) MCH 27.4 pg L pg (27.9-34.1) MCHC 31.6 g/dL L g/dL (32.4-36.7) RDW 13.3 % % (11.5-15.2) Plt Count 360 10^3/uL 10^3/uL (150-400) MPV 9.7 fL fL (8.7-11.7) Neut % (Auto) 61.4 % % (39.3-74.2) Lymph % (Auto) 29.4 % % (15.0-45.0) [place] % (Auto) 6.8 % % (4.5-13.0) Eos % (Auto) 1.3 % % (0.6-7.6) Baso % (Auto) 0.6 % % (0.3-1.7) Nucleat RBC Rel Count 0.0 % % (0.0-0.2) Absolute Neuts (auto) 3.86 10^3/uL 10^3/uL (1.70-6.50) Absolute Lymphs (auto) 1.85 10^3/uL 10^3/uL (1.00-3.00) Absolute Monos (auto) 0.43 10^3/uL 10^3/uL (0.30-0.80) Absolute Eos (auto) 0.08 10^3/uL 10^3/uL (0.03-0.40) Absolute Basos (auto) 0.04 10^3/uL 10^3/uL (0.02-0.10) Absolute Nucleated RBC 0.00 10^3/uL 10^3/uL (0-0.01) Immature Gran % 0.5 % % (0.0-1.1) Immature Gran # 0.03 10^3/uL 10^3/uL (0.00-0.10) Sodium Pending Potassium Pending Chloride Pending Carbon Dioxide Pending Anion Gap Pending BUN Pending Creatinine Pending Estimated GFR Pending Glucose Pending Calcium Pending Troponin I Pending NT-Pro-B Natriuret Pep Pending Medications Given: Discontinued Medications Albuterol/Ipratropium (Duoneb) 3 ml IH EDNOW ONE Stop: 08/23/16 06:37 Last Admin: 08/23/16 06:45 Dose: 3 ml Departure - Departure Disposition: Home, Routine, Self-Care Clinical Impression: Dyspnea Condition: Good Instructions: Dyspnea (ED) Additional Instructions: Follow up with Dr. Nguyen, her patent prosecution attorney for any worsening shortness of breath, worsening swelling, chest pain, or any other concerns. Please make sure to wear oxygen at all times especially when exerting yourself. Referrals: Patient,NotPresent [Unknown] - As per Instructions Jag Nguyen MD [Medical Doctor] - As per Instructions
[2016-08-23 06:36] VITALS: BP 158/107; PULSE 101; RESP 24; TEMP 98.6
[2016-08-23 06:36] LABS: % IMMATURE GRANULYOCYTES 0.5 % (0.0-1.1); ABSOLUTE IMMATURE GRANULOCYTES 0.03 10^3/uL (0.00-0.10); ADD DIFF? NO; ADD MORPH? NO; ADD SCAN? NO; ATYPICAL LYMPHOCYTE FLAG 20 (0-99); FRAGMENT RBC FLAG 0 (0-99); HEMATOCRIT 41.8 % (38.0-47.0); HEMOGLOBIN 13.2 g/dL (12.6-16.3); LEFT SHIFT FLG 20 (0-99); LIPEMIA HEMOLYSIS FLAG 80 (0-99); MEAN CELL HEMOGLOBIN 27.4 pg (27.9-34.1); MEAN CELL HEMOGLOBIN CONCENTR. 31.6 g/dL (32.4-36.7); MEAN CELL VOLUME 86.7 fL (81.5-99.8); MEAN PLATELET VOLUME 9.7 fL (8.7-11.7); PLATELET CLUMPS FLAG 20 (0-99); PLATELET COUNT 360 10^3/uL (150-400); RED BLOOD CELL COUNT 4.82 10^6/uL (4.18-5.33); RED CELL DISTRIBUTION WIDTH 13.3 % (11.5-15.2)
[2016-08-23] MEDS ORDERED: IPRATROPIUM/ALBUTEROL 3 ML DEYVIAL IH ONE (06:36)
[2016-08-23] MEDS ORDERED: IPRATROPIUM/ALBUTEROL 3 ML DEYVIAL ONE (06:37)
[2016-08-23 06:46] VITALS: O2SAT 94
[2016-08-23 07:08] LABS: ANION GAP 8 mEq/L (8-16); CALCIUM 9.3 mg/dL (8.5-10.4); CARBON DIOXIDE 26 mEq/l (22-31); CHLORIDE 106 mEq/L (97-110); CREATININE 0.7 mg/dL (0.6-1.0); GLOMERULAR FILTRATION RATE > 60; GLUCOSE 188 mg/dL (70-100); POTASSIUM 4.7 mEq/L (3.5-5.2); SODIUM 140 mEq/L (134-144)
[2016-08-23 07:20] LABS: TROPONIN I 0.015 ng/mL (0-0.034)
== END 2016-08-23 07:49 | disposition home or self-care (01) ==
LOC: EDUNIT#
DX: R06.00 Dyspnea, unspecified (principal); I50.9 Heart failure, unspecified; E11.9 Type 2 diabetes mellitus without complications; J45.909 Unspecified asthma, uncomplicated; I10 Essential (primary) hypertension; F17.200 Nicotine dependence, unspecified, uncomplicated; Z79.82 Long term (current) use of aspirin; Z79.84 Long term (current) use of oral hypoglycemic drugs

== ENCOUNTER 2016-09-04 04:11 | Inpatient (IN) | payer MEDICAID ==
[2016-09-04] MEDS ORDERED: IPRATROPIUM/ALBUTEROL 3 ML DEYVIAL ONE ×2 (04:16→12:17)
[2016-09-04] MEDS ORDERED: ASPIRIN 81 MG CHEWABLE TAB PO ONE (04:17)
[2016-09-04] MEDS ORDERED: IPRATROPIUM/ALBUTEROL 3 ML DEYVIAL IH ONE (04:18)
--- NOTE | 2016-09-04 04:26 | EDPHY ---
H & P HPI/ROS: HPI CHIEF COMPLAINT: Shortness of breath, hypoxia HISTORY OF PRESENT ILLNESS: This patient very pleasant 51-year-old female she does have significant past medical history of congestive heart failure last ejection fraction 15%, nonischemic cardiomyopathy, diabetes, obstructive sleep apnea, morbid obesity, cerebral aneurysm AICD, she presents emergency room with shortness of breath that started earlier this evening. She denies chest pain but does endorse chest tightness. She states she cannot take a deep breath in. She does tell me that her legs are more swollen than normal or abdomen feels more swollen. She tells me she has been taking 3 L nasal cannula of oxygen however has been taking 2 L as the canisters do not last for long as she living in a homeless correction. Upon arrival here in emergency room she does arrive by EMS she complains of shortness of breath. Is noted that her room air oxygen saturation 79% she is tachypneic in the 30s. Past Medical History: Congestive heart failure, last ejection fraction 15%, nonischemic cardiomyopathy, diabetes, obstructive sleep apnea, morbid obesity, cerebral aneurysm, V-tach Past Surgical History: AICD Social History: Smokes marijuana, denies other illicit drugs or tobacco or alcohol is homeless lives at homeless correction Family History: Noncontributory ROS REVIEW OF SYSTEMS: A comprehensive 10 point review of systems is otherwise negative aside from elements mentioned in the history of present illness. Exam Constitutional moderate amount of respiratory distress triage nursing summary reviewed, vital signs reviewed, awake/alert. Eyes normal conjunctivae and sclera, EOMI, PERRLA. HENT normal inspection, atraumatic, moist mucus membranes, no epistaxis, neck supple/ no meningismus, no raccoon eyes. Respiratory decreased breath sounds bilaterally, tachypnea, moderate respiratory distress Cardiovascular rate normal, regular rhythm, no murmur, no edema, distal pulses normal. Gastrointestinal soft, non-tender, no rebound, no guarding, normal bowel sounds, no distension, no pulsatile mass. Genitourinary no CVA tenderness. Musculoskeletal no midline vertebral tenderness, full range of motion, no calf swelling, no tenderness of extremities, no meningismus, good pulses, neurovascularly intact. Skin pink, warm, & dry, no rash, skin atraumatic. Neurologic awake, alert and oriented x 3, AAOx3, moves all 4 extremities equally, motor intact, sensory intact, CN II-XII intact, normal cerebellar, normal vision, normal speech. Psychiatric normal mood/affect. Heme/Lymph/Immune no lymphadenopathy. Differential Diagnosis: Includes but is not limited to in a particular order: Decompensated heart failure, acute CA, pneumonia, reactive airway disease, no anxiety Medical Decision Making: Plan for this patient patient be placed on full cardiac cath rn, supplemental oxygen, DuoNeb breathing treatment, hold off on IV fluids at this time, chest x-ray blood work including BMP and troponin, ABG Re-evaluation: 0431AM: Patient reports to me that she has missed multiple days of her Lasix she thinks up to 4-5 days. ED x-ray chest one view: Shows significant cardiomegaly, bilateral pulmonary edema consistent for decompensated heart failure. AICD appears to be in appropriate position. EKG interpretation by me on record in [facility] system. Impression Sinus Tachycardia, rate of 100, QT interval noted to be 396. Do not appreciate acute ischemic changes specifically no ST depression or ST elevation. 0520AM: Patient is resting comfortably. Still slightly tachypneic. However much improved. She did urinate after IV Lasix. She has no chest pain at this time. Blood work has been reviewed elevated BNP. Chest x-ray shows cardiomegaly and pulmonary edema consistent with decompensated heart failure. Patient currently on 3 L of oxygen. Room air saturation was 79%. It is noted she does have a positive D-dimer her aunt this time I think pulmonary embolism is unlikely and most likely cause of shortness of breath and tachypnea is decompensated heart failure. I did discuss with the hospitalist service, spoke with Dr. Hermosillo who agrees to admit this patient. Source: Patient, Family, EMS - Medical/Surgical History Hx Asthma: Yes Hx Chronic Respiratory Disease: Yes Hx Diabetes: Yes Hx Cardiac Disease: Yes Hx Renal Disease: No Hx Cirrhosis: No Hx Alcoholism: No Hx HIV/AIDS: No Hx Splenectomy or Spleen Trauma: No Other PMH: CHF, DIABETES, SERENITY;HTN; BRAIN ANEURYSM 1 YR [id number]; COCAINE ABUSE X 25YRS AGO--QUIT 3 YRS AGO;ASTHMA A CHILD - Social History Smoking Status: Current some day smoker Constitutional: Initial Vital Signs O2 Sat (%) 93 09/04/16 04:17 O2 Delivery Mode Room Air O2 (L/minute) 4 Allergies/Adverse Reactions: ceftriaxone sodium [From Rocephin] Allergy (Verified 08/04/16 09:19) Home Medications: Medication Instructions Recorded Aspirin EC [Aspirin EC 81 mg (*)] 81 mg PO DAILY 06/18/16 Lisinopril [Zestril 20 mg (*)] 20 mg PO DAILY 06/18/16 Carvedilol [Coreg (*)] 6.25 mg PO BIDMEAL 06/24/16 Spironolactone [Aldactone 25 MG 25 mg PO DAILY 06/24/16 (*)] glipiZIDE [Glipizide] 5 mg PO DAILY #30 tablet 06/25/16 Furosemide [Lasix 40 MG (*)] 80 mg PO BID@0900,1500 #60 tab 07/15/16 metFORMIN HCL [Glucophage 500 mg 1,000 mg PO BIDMEAL 07/15/16 (*)] Medical Decision Making - Data Points Laboratory Results: Laboratory Results 09/04/16 04:15 09/04/16 04:15 09/04/16 09/04/16 09/04/16 04:15 04:15 04:15 WBC 6.67 10^3/uL 10^3/uL (3.80-9.50) RBC 4.96 10^6/uL 10^6/uL (4.18-5.33) Hgb 13.2 g/dL g/dL (12.6-16.3) Hct 43.6 % % (38.0-47.0) MCV 87.9 fL fL (81.5-99.8) MCH 26.6 pg L pg (27.9-34.1) MCHC 30.3 g/dL L g/dL (32.4-36.7) RDW 13.8 % % (11.5-15.2) Plt Count 301 10^3/uL 10^3/uL (150-400) MPV 10.2 fL fL (8.7-11.7) Neut % (Auto) 53.4 % % (39.3-74.2) Lymph % (Auto) 34.8 % % (15.0-45.0) [place] % (Auto) 7.8 % % (4.5-13.0) Eos % (Auto) 1.6 % % (0.6-7.6) Baso % (Auto) 0.9 % % (0.3-1.7) Nucleat RBC Rel Count 0.3 % H % (0.0-0.2) Absolute Neuts (auto) 3.56 10^3/uL 10^3/uL (1.70-6.50) Absolute Lymphs (auto) 2.32 10^3/uL 10^3/uL (1.00-3.00) Absolute Monos (auto) 0.52 10^3/uL 10^3/uL (0.30-0.80) Absolute Eos (auto) 0.11 10^3/uL 10^3/uL (0.03-0.40) Absolute Basos (auto) 0.06 10^3/uL 10^3/uL (0.02-0.10) Absolute Nucleated RBC 0.02 10^3/uL H 10^3/uL (0-0.01) Immature Gran % 1.5 % H % (0.0-1.1) Immature Gran # 0.10 10^3/uL 10^3/uL (0.00-0.10) PT 12.6 SEC SEC (12.0-15.0) INR 0.95 (0.83-1.16) APTT 24.1 SEC SEC (23.0-38.0) D-Dimer 1.36 ug/mLFEU H ug/mLFEU (0.00-0.50) Sodium 139 mEq/L mEq/L (134-144) Potassium 4.2 mEq/L mEq/L (3.5-5.2) Chloride 102 mEq/L mEq/L (97-110) Carbon Dioxide 23 mEq/l mEq/l (22-31) Anion Gap 14 mEq/L mEq/L (8-16) BUN 15 mg/dL mg/dL (7-23) Creatinine 0.9 mg/dL mg/dL (0.6-1.0) Estimated GFR > 60 Glucose 315 mg/dL H mg/dL (70-100) Calcium 9.1 mg/dL mg/dL (8.5-10.4) Magnesium 1.8 mg/dL mg/dL (1.6-2.3) Total Bilirubin 0.6 mg/dL mg/dL (0.1-1.4) Conjugated Bilirubin 0.4 mg/dL mg/dL (0.0-0.5) Unconjugated Bilirubin 0.2 mg/dL mg/dL (0.0-1.1) AST 84 IU/L H IU/L (14-46) ALT 95 IU/L H IU/L (9-52) Alkaline Phosphatase 79 IU/L IU/L (38-126) Creatine Kinase 73 IU/L IU/L (0-156) CK-MB (CK-2) Fraction 1.02 ng/mL ng/mL (0-3.19) Troponin I 0.021 ng/mL ng/mL (0-0.034) NT-Pro-B Natriuret Pep 1420 pg/mL H pg/mL (0-125) Total Protein 7.1 g/dL g/dL (6.3-8.2) Albumin 4.0 g/dL g/dL (3.5-5.0) Lipase 200.0 IU/L IU/L (23-300) Medications Given: Discontinued Medications Albuterol/Ipratropium (Duoneb) 3 ml IH EDNOW ONE Stop: 09/04/16 04:19 Last Admin: 09/04/16 04:20 Dose: 3 ml Aspirin (Aspirin) 324 mg PO EDNOW ONE Stop: 09/04/16 04:18 Last Admin: 09/04/16 04:40 Dose: 324 mg Furosemide (Lasix Injection) 40 mg IVP EDNOW ONE Stop: 09/04/16 04:31 Last Admin: 09/04/16 05:01 Dose: 40 mg Departure - Departure Disposition: [facility] Inpatient Acute Clinical Impression: Hypoxia Dyspnea Qualifiers: Dyspnea type: unspecified Qualified Code(s): R06.00 - Dyspnea, unspecified CHF exacerbation Qualifiers: Congestive heart failure type: unspecified congestive heart failure type Qualified Code(s): I50.9 - Heart failure, unspecified Condition: Serious Referrals: Patient,NotPresent [Unknown] - As per Instructions
[2016-09-04 04:28] LABS: % IMMATURE GRANULYOCYTES 1.5 % (0.0-1.1); ABSOLUTE NRBC COUNT 0.02 10^3/uL (0-0.01); ADD DIFF? NO; ADD MORPH? NO; ADD SCAN? NO; ATYPICAL LYMPHOCYTE FLAG 10 (0-99); FRAGMENT RBC FLAG 0 (0-99); HEMATOCRIT 43.6 % (38.0-47.0); HEMOGLOBIN 13.2 g/dL (12.6-16.3); LEFT SHIFT FLG 20 (0-99); LIPEMIA HEMOLYSIS FLAG 80 (0-99); MEAN CELL HEMOGLOBIN 26.6 pg (27.9-34.1); MEAN CELL HEMOGLOBIN CONCENTR. 30.3 g/dL (32.4-36.7); MEAN CELL VOLUME 87.9 fL (81.5-99.8); MEAN PLATELET VOLUME 10.2 fL (8.7-11.7); NRBC-AUTO% 0.3 % (0.0-0.2); PLATELET CLUMPS FLAG 10 (0-99); PLATELET COUNT 301 10^3/uL (150-400); RED BLOOD CELL COUNT 4.96 10^6/uL (4.18-5.33); RED CELL DISTRIBUTION WIDTH 13.8 % (11.5-15.2)
[2016-09-04] MEDS ORDERED: FUROSEMIDE 40 MG/4 ML VIAL IVP ONE (04:30)
[2016-09-04 04:39] LABS: ALANINE AMINOTRANSFERASE 95 IU/L (9-52); ALKALINE PHOSPHATASE 79 IU/L (38-126); ANION GAP 14 mEq/L (8-16); ASPARTATE AMINOTRANSFERASE 84 IU/L (14-46); BILIRUBIN,TOTAL 0.6 mg/dL (0.1-1.4); BILIRUBIN-CONJUGATED 0.4 mg/dL (0.0-0.5); BILIRUBIN-UNCONJUGATED 0.2 mg/dL (0.0-1.1); CALCIUM 9.1 mg/dL (8.5-10.4); CARBON DIOXIDE 23 mEq/l (22-31); CHLORIDE 102 mEq/L (97-110); CREATININE 0.9 mg/dL (0.6-1.0); GLOMERULAR FILTRATION RATE > 60; GLUCOSE 315 mg/dL (70-100); MAGNESIUM 1.8 mg/dL (1.6-2.3); POTASSIUM 4.2 mEq/L (3.5-5.2); SODIUM 139 mEq/L (134-144); TOTAL PROTEIN 7.1 g/dL (6.3-8.2)
[2016-09-04 04:46] LABS: INR 0.95 (0.83-1.16); PROTIME(PATIENT) 12.6 SEC (12.0-15.0)
[2016-09-04 04:47] LABS: APTT 24.1 SEC (23.0-38.0)
--- NOTE | 2016-09-04 04:47 | CPEKG ---
Heart Rate: 100 RR Interval: 600 P-R Interval: 156 QRSD Interval: 94 QT Interval: 396 QTC Interval: 511 P [place]: 56 QRS [place]: 6 EKG Severity - ABNORMAL ECG - EKG Impression: SINUS TACHYCARDIA EKG Impression: LEFT VENTRICULAR HYPERTROPHY EKG Impression: PROLONGED QT INTERVAL Electronically Signed By: Kaushal Akers 04-Sep-2016 07:15:42
[2016-09-04 04:51] LABS: CREATINE KINASE-MB FRACTION 1.02 ng/mL (0-3.19); TROPONIN I 0.021 ng/mL (0-0.034)
[2016-09-04] MEDS ORDERED: ALBUTEROL 3 ML DEYVIAL IH PRN (06:20)
[2016-09-04] MEDS ORDERED: ONDANSETRON 4 MG/2 ML VIAL IVP PRN (06:20)
[2016-09-04] MEDS ORDERED: oxyCODONE IR 5 MG TAB PO PRN (06:20)
[2016-09-04] MEDS ORDERED: ONDANSETRON DISINTEGRATING 4 MG TAB PO PRN (06:20)
[2016-09-04] MEDS ORDERED: D50W 25 GM/50 ML SYR IVP PRN (06:26)
--- NOTE | 2016-09-04 06:43 | PDGENHP ---
History and Physical - Chief Complaint shortness of breath - History of Present Illness Patient is a 51 year old female with nonischemic cardiomyopathy (EF 15%, with AICD in place), dm 2, hypertension, obstructive sleep apnea and morbid obesity who presents to the ED with complaint of shortness of breath, generalized fatigue. She is living in a fci and reports for the past several days she has been feeling short of breath, especially at night when trying to lie down. She is also having increased dyspnea with minimal exertion. Denies any associated chest pain, palpitations, cough, lightheadedness or dizziness. This evening, she felt like she couldn't breath, so her brought her into the ED. She does report that she has been noncompliant with all her home meds for the past 2-3 days, for unclear reason. On arrival to the ED, patient was afebrile, hemodynamically stable, but significantly hypoxic on room air. CXR revealed pulmonary edema and bilateral pleural effusions. Labs showed normal CBC, normal bmp, elevated BNP and indeterminant troponin. History Information - Allergies/Home Medication List Allergies/Adverse Reactions: ceftriaxone sodium [From Rocephin] Allergy (Verified 08/04/16 09:19) Home Medications: Aspirin EC [Aspirin EC 81 mg (*)] 81 mg PO DAILY 06/18/16 [Last Taken 07/15/16 4 TABS] Lisinopril [Zestril 20 mg (*)] 20 mg PO DAILY 06/18/16 [Last Taken 07/14/16] Carvedilol [Coreg (*)] 6.25 mg PO BIDMEAL 06/24/16 [Last Taken 07/14/16 18:00] Spironolactone [Aldactone 25 MG (*)] 25 mg PO DAILY 06/24/16 [Last Taken ] metFORMIN HCL [Glucophage 500 mg (*)] 1,000 mg PO BIDMEAL 07/15/16 [Last Taken 07/08/16] I have personally reviewed and updated: family history, medical history, social history, surgical history - Past Medical History Additional medical history: nonischemic CHF, EF 15%. AICD implanted. Hypertension. DM2. SERENITY. h/o cerebral aneurysm. obesity - Surgical History Additional surgical history: cerebral aneurysm - Family History Positive for: non-pertinent - Social History Smoking Status: Never smoked Alcohol Use: None Drug Use: Marijuana (daily) Additional social history: Homeless, lives in fci with her . Originally from [place]. Review of Systems ROS: 10pt was reviewed & negative except for what was stated in HPI & below Physical Exam Temp Pulse Resp BP Pulse Ox 36.7 C 101 H 20 149/84 H 78 L 09/04/16 04:20 09/04/16 04:20 09/04/16 04:20 09/04/16 04:20 09/04/16 04:20 Constitutional: no apparent distress, appears nourished, not in pain Eyes: PERRL, anicteric sclera, EOMI Ears, Nose, Mouth, Throat: moist mucous membranes, hearing normal, ears appear normal, no oral mucosal ulcers Cardiovascular: regular rate and rhythym, no murmur, rub, or gallop, edema Peripheral Pulses: 2+: dorsalis-pedis (R), dorsalis-pedis (L) Respiratory: reduced air movement, inspiratory crackles Gastrointestinal: normoactive bowel sounds, soft, non-tender abdomen, no palpable masses, No guarding, No rebound Genitourinary: no bladder fullness, no bladder tenderness Skin: warm, normal color, no rashes or abrasions, no fluctuance, no induration, No mottled Musculoskeletal: full muscle strength, no muscle tenderness, normal joint ROM, no joint effusions Neurologic: AAOx3, sensation intact bilaterally, CN II-XII Intact, No weakness, No numbness, No facial droop Psychiatric: interacting appropriately, not anxious, not encephalopathic, thought process linear Lab Data & Imaging Review 09/04/16 04:15 09/04/16 04:15 WBC 6.67 10^3/uL (3.80-9.50) 09/04/16 04:15 RBC 4.96 10^6/uL (4.18-5.33) 09/04/16 04:15 Hgb 13.2 g/dL (12.6-16.3) 09/04/16 04:15 Hct 43.6 % (38.0-47.0) 09/04/16 04:15 MCV 87.9 fL (81.5-99.8) 09/04/16 04:15 MCH 26.6 pg (27.9-34.1) L 09/04/16 04:15 MCHC 30.3 g/dL (32.4-36.7) L 09/04/16 04:15 RDW 13.8 % (11.5-15.2) 09/04/16 04:15 Plt Count 301 10^3/uL (150-400) 09/04/16 04:15 MPV 10.2 fL (8.7-11.7) 09/04/16 04:15 Neut % (Auto) 53.4 % (39.3-74.2) 09/04/16 04:15 Lymph % (Auto) 34.8 % (15.0-45.0) 09/04/16 04:15 [place] % (Auto) 7.8 % (4.5-13.0) 09/04/16 04:15 Eos % (Auto) 1.6 % (0.6-7.6) 09/04/16 04:15 Baso % (Auto) 0.9 % (0.3-1.7) 09/04/16 04:15 Nucleat RBC Rel Count 0.3 % (0.0-0.2) H 09/04/16 04:15 Absolute Neuts (auto) 3.56 10^3/uL (1.70-6.50) 09/04/16 04:15 Absolute Lymphs (auto) 2.32 10^3/uL (1.00-3.00) 09/04/16 04:15 Absolute Monos (auto) 0.52 10^3/uL (0.30-0.80) 09/04/16 04:15 Absolute Eos (auto) 0.11 10^3/uL (0.03-0.40) 09/04/16 04:15 Absolute Basos (auto) 0.06 10^3/uL (0.02-0.10) 09/04/16 04:15 Absolute Nucleated RBC 0.02 10^3/uL (0-0.01) H 09/04/16 04:15 Immature Gran % 1.5 % (0.0-1.1) H 09/04/16 04:15 Immature Gran # 0.10 10^3/uL (0.00-0.10) 09/04/16 04:15 PT 12.6 SEC (12.0-15.0) 09/04/16 04:15 INR 0.95 (0.83-1.16) 09/04/16 04:15 APTT 24.1 SEC (23.0-38.0) 09/04/16 04:15 D-Dimer 1.36 ug/mLFEU (0.00-0.50) H 09/04/16 04:15 Sodium 139 mEq/L (134-144) 09/04/16 04:15 Potassium 4.2 mEq/L (3.5-5.2) 09/04/16 04:15 Chloride 102 mEq/L (97-110) 09/04/16 04:15 Carbon Dioxide 23 mEq/l (22-31) 09/04/16 04:15 Anion Gap 14 mEq/L (8-16) 09/04/16 04:15 BUN 15 mg/dL (7-23) 09/04/16 04:15 Creatinine 0.9 mg/dL (0.6-1.0) 09/04/16 04:15 Estimated GFR > 60 09/04/16 04:15 Glucose 315 mg/dL (70-100) H 09/04/16 04:15 Calcium 9.1 mg/dL (8.5-10.4) 09/04/16 04:15 Magnesium 1.8 mg/dL (1.6-2.3) 09/04/16 04:15 Total Bilirubin 0.6 mg/dL (0.1-1.4) 09/04/16 04:15 Conjugated Bilirubin 0.4 mg/dL (0.0-0.5) 09/04/16 04:15 Unconjugated Bilirubin 0.2 mg/dL (0.0-1.1) 09/04/16 04:15 AST 84 IU/L (14-46) H 09/04/16 04:15 ALT 95 IU/L (9-52) H 09/04/16 04:15 Alkaline Phosphatase 79 IU/L (38-126) 09/04/16 04:15 Creatine Kinase 73 IU/L (0-156) 09/04/16 04:15 CK-MB (CK-2) Fraction 1.02 ng/mL (0-3.19) 09/04/16 04:15 Troponin I 0.021 ng/mL (0-0.034) 09/04/16 04:15 NT-Pro-B Natriuret Pep 1420 pg/mL (0-125) H 09/04/16 04:15 Total Protein 7.1 g/dL (6.3-8.2) 09/04/16 04:15 Albumin 4.0 g/dL (3.5-5.0) 09/04/16 04:15 Lipase 200.0 IU/L (23-300) 09/04/16 04:15 Visualized and Interpreted Chest x-ray results: Yes Chest X-Ray results: other (cardiomegaly, bilateral effusions/edema) Visualized and Interpreted EKG results: Yes EKG additional interpertation: sinus rhythm, no st/t wave changes Assessment & Plan Assessment: Patient is a 51 year old female with nonischemic cardiomyopathy, EF 10-15%, s/ p AICD placement, hypertension, hyperlipidemia, DM2, SERENITY and morbid obesity who presented to the ED with 2-3 days of worsening dyspnea on exertion, orthopnea and lower extremity edema. ED work up appears consistent with an acute on chronic chf exacerbation. Plan: # acute decompensated heart failure Patient reports noncompliance with her home meds for the past 2 days. On presentation she appears volume overloaded, as supported by CXR and BNP findings. - Lasix 40 mg IV BID - follow I/Os, daily weight, electrolytes - resume home heart failure meds - check TTE to assess for interval improvement # acute respiratory failure Likely due to above. No infectious signs/symptoms. D-dimer is elevated, however , there is a more obvious reason for respiratory failure, no tachycardia. If hypoxia does not improve with aggressive diuresis, consider CT angio. However, will defer this at this time. # DM2 Moderately hyperglycemic on presentation, again likely due to noncompliance with home meds for the past several days. Will place on FS monitoring with sliding scale coverage. # HTN Confirm and continue home meds # dispo: admit to inpatient service for > 2 [place] stay # gen: cardiac/diabetic diet DVT ppx: lovenox Full code
[2016-09-04] MEDS ORDERED: INSULIN LISPRO 100 UNIT/ML SC ONE (08:01)
[2016-09-04] MEDS: INSULIN LISPRO 100 UNIT/ML SC SCH ×4 (08:22→17:38)
[2016-09-04 08:34] LABS: COLOR COLORLESS; LEUKOCYTE ESTERASE,URINE NEGATIVE (NEGATIVE); NITRITE,URINE NEGATIVE (NEGATIVE)
[2016-09-04 08:37] LABS: ANION GAP 15 mEq/L (8-16); CALCIUM 9.2 mg/dL (8.5-10.4); CARBON DIOXIDE 23 mEq/l (22-31); CHLORIDE 100 mEq/L (97-110); CREATININE 0.8 mg/dL (0.6-1.0); GLOMERULAR FILTRATION RATE > 60; GLUCOSE 359 mg/dL (70-100); POTASSIUM 4.5 mEq/L (3.5-5.2); SODIUM 138 mEq/L (134-144)
[2016-09-04 08:38] LABS: MUCUS TRACE /lpf (NONE-1+)
[2016-09-04] MEDS ORDERED: FUROSEMIDE 40 MG/4 ML VIAL ONE (09:37)
[2016-09-04] MEDS: FUROSEMIDE 40 MG/4 ML VIAL IVP SCH ×2 (10:15→15:12)
[2016-09-04] MEDS ORDERED: INSULIN REGULAR HUMAN 100 UNIT/ML IVP ONE (10:29)
[2016-09-04 10:32] LABS: CALCIUM 8.9 mg/dL (8.5-10.4); CARBON DIOXIDE 21 mEq/l (22-31); CHLORIDE 101 mEq/L (97-110); CREATININE 0.8 mg/dL (0.6-1.0); GLOMERULAR FILTRATION RATE > 60; GLUCOSE 419 mg/dL (70-100); MAGNESIUM 1.8 mg/dL (1.6-2.3); SODIUM 138 mEq/L (134-144)
[2016-09-04] MEDS ORDERED: ASPIRIN 81 MG CHEWABLE TAB ONE (10:39)
[2016-09-04] MEDS ORDERED: INSULIN REGULAR HUMAN 100 UNIT/ML ONE ×2 (10:39→12:17)
[2016-09-04 10:53] LABS: ANION GAP 16 mEq/L (8-16); POTASSIUM 4.4 mEq/L (3.5-5.2)
[2016-09-04] MEDS: ASPIRIN EC 81 MG TAB PO SCH (11:20)
[2016-09-04] MEDS: ENOXAPARIN 40 MG/0.4 ML SYR SC SCH (11:20)
[2016-09-04] MEDS: SPIRONOLACTONE 25 MG TAB PO SCH (11:21)
[2016-09-04] MEDS: INSULIN GLARGINE 100 UNITS/ML SYRINGE SC SCH (11:21)
[2016-09-04] MEDS: IPRATROPIUM/ALBUTEROL 3 ML DEYVIAL IH SCH ×3 (12:28→20:47)
--- NOTE | 2016-09-04 14:41 | HOSPPROG ---
Hospitalist Progress Note Assessment/Plan: 51 yo F with NICM, EF 10-15%, s/p AICD placement, hypertension, hyperlipidemia, DM2, SERENITY and morbid obesity admitted this am with acute HF # acute decompensated heart failure - non-compliant with home meds - Cont Lasix 40 mg IV BID - follow I/Os, daily weight, electrolytes - cont home meds including coreg, lisinopril, ASA - echo pending # acute respiratory failure - 2/2 above, wean O2 as able # DM2 - poor control on arrival. she has required 50 units of insulin already today to get bg's in high 200's - Cont MTF (Cr ok) - Lantus / Lispro SSI, up-titrate as needed - check a1c (was 10.6 in 06/2016), likely needs to start insulin therapy # HTN -cont coreg, lisinopril, aldactone. holding norvasc for now while diuresing ( relatively normotensive) # dispo: cont inpt DVT ppx: lovenox Full code Subjective: Pt feels okay, still orthopneic and SOB. No CP. No fevers/chills. She has not been taking her medications at the homeless correction because she doesn't have access to a restroom. Objective: Vital Signs Temp Pulse Resp BP Pulse Ox 36.7 C 96 20 122/76 H 96 09/04/16 13:13 09/04/16 13:13 09/04/16 13:13 09/04/16 13:13 09/04/16 13:13 Laboratory Results 09/04/16 07:56 09/03/16 09/04/16 09/05/16 05:59 05:59 05:59 Intake Total 20 Balance 20 PT 12.6 SEC (12.0-15.0) 09/04/16 04:15 INR 0.95 (0.83-1.16) 09/04/16 04:15 - Physical Exam Constitutional: obese Ears, Nose, Mouth, Throat: moist mucous membranes Cardiovascular: regular rate and rhythym Respiratory: inspiratory crackles Skin: warm Neurologic: AAOx3 Psychiatric: interacting appropriately ICD10 Worksheet Patient Problems: Problems Problem Status Onset CHF exacerbation Acute Dyspnea Acute Hypoxia Acute
[2016-09-04 15:28] LABS: ANION GAP 15 mEq/L (8-16); CALCIUM 9.2 mg/dL (8.5-10.4); CARBON DIOXIDE 23 mEq/l (22-31); CHLORIDE 97 mEq/L (97-110); CREATININE 0.9 mg/dL (0.6-1.0); GLOMERULAR FILTRATION RATE > 60; GLUCOSE 482 mg/dL (70-100); POTASSIUM 4.6 mEq/L (3.5-5.2); SODIUM 135 mEq/L (134-144)
[2016-09-04] MEDS ORDERED: INSULIN REGULAR HUMAN 100 UNIT/ML SC ONE (16:30)
[2016-09-04] MEDS ORDERED: INSULIN GLARGINE 100 UNITS/ML SYRINGE SC ONE (16:30)
--- NOTE | 2016-09-04 16:48 | ECHO ---
[id number] + + [address] : : [place] [address] : : [phone] + + Adult Echocardiographic Report + + :Name: MARINA TYLERAdelfo Date: 09/04/2016 02:31 PM : : Hospital Admission Number: [id number] : :: 1965 Gender: Female Height: 65 in : :Age: 51 yrs Race: BAA Weight: 300 lb : :Reason For Study: Eval LV Fx : : BSA: 2.4 meters2: :History: Known CHF, Post AICD, Hypoxia : + + MMode/2D Measurements \T\ Calculations IVSd: 1.2 cm LVIDd: 6.2 cm FS: 11.9 % Ao root diam: 2.5 cm LVPWd: 1.6 cm LVIDs: 5.5 cm EDV(Teich): 193.4 ml ACS: 1.5 cm ESV(Teich): 144.7 ml EF(Teich): 25.1 % Normal Measurement Values: + + :LVIDd (3.5-5.7cm) IVSd (0.6-1.1cm) LVPWd (0.6-1.1cm) Aortic Root (2.0-3.7cm)Left Atrium (1.5-4.0cm): :LV Vol(d) (76-115ml) LV Vol(s) (29-48ml) Ejec Fraction (50-65%)PV Dung (0.6- 1.2m/s) TV Dung (0.4-1.0m/s) : :MV E Dung (0.8-1.0m/s)MV A Dung (0.3-1.0m/s)LVOT Dung (0.7-1.2m/s) Asc Ao Dung ( 0.9-1.8m/s) : + + Doppler Measurements \T\ Calculations MV E max dung: MV V2 mean: Ao V2 max: LV V1 max: 133.3 cm/sec 97.3 cm/sec 184.6 cm/sec 71.1 cm/sec MV A max dung: MV mean PG: Ao max PG: LV V1 max P.5 cm/sec 4.3 mmHg 13.6 mmHg 2.0 mmHg MV E/A: 1.2 MV V2 VTI: 46.3 cm PA V2 max: 129.0 cm/sec PA max P.7 mmHg Left Ventricle The left ventricle is mildly dilated. There is mild concentric left ventricular hypertrophy. Ejection Fraction = 25%. There is Doppler evidence for diastolic dysfunction. There is moderate to severe global hypokinesis of the left ventricle. Right Ventricle The right ventricle is normal size. There is a pacemaker lead in the right ventricle. Atria The left atrium is moderately dilated. Right atrial size is normal. Mitral Valve The mitral valve is normal. There is no evidence of mitral valve prolapse. There is no mitral valve stenosis. There is trace to mild mitral regurgitation. Tricuspid Valve Normal tricuspid valve. There is trace tricuspid regurgitation. Right ventricular systolic pressure is normal. Aortic Valve The aortic valve is normal in structure and function. There is no aortic stenosis. There is no aortic insufficiency. Pulmonic Valve The pulmonic valve is normal in structure and function. There is no pulmonic valvular regurgitation. Great Vessels The aortic root is normal size. Pericardium/Pleural Trivial posterior pericardial effusion. Conclusion A complete two-dimensional transthoracic echocardiogram was performed (2D, M-mode, Doppler and color flow Doppler). Mild LV dilatation. Mild concentric LVH, moderate to severe global hypokinesis with estimated EF of 25%. Diastolic dysfunction noted. Moderate LA enlargement Trace to mild mitral regurgitation, trace tricuspid regurgitation. Trivial posterior pericardial effusion Final Reading Physician: Isaura Redman signed on 09/04/2016 04:46 PM Ordering Physician: Bria Hermosillo Performed By: Gilmer Morataya, RDCS
[2016-09-04] MEDS ORDERED: INSULIN REGULAR HUMAN 100 UNIT/ML IV ONE (17:00)
[2016-09-04] MEDS: CARVEDILOL 6.25 MG TAB PO SCH (17:39)
[2016-09-05] MEDS: IPRATROPIUM/ALBUTEROL 3 ML DEYVIAL IH SCH ×4 (04:57→20:29)
[2016-09-05 05:31] LABS: ALANINE AMINOTRANSFERASE 79 IU/L (9-52); ALBUMIN 3.8 g/dL (3.5-5.0); ALKALINE PHOSPHATASE 68 IU/L (38-126); ANION GAP 11 mEq/L (8-16); ASPARTATE AMINOTRANSFERASE 49 IU/L (14-46); BILIRUBIN,TOTAL 0.7 mg/dL (0.1-1.4); CALCIUM 9.5 mg/dL (8.5-10.4); CARBON DIOXIDE 27 mEq/l (22-31); CHLORIDE 100 mEq/L (97-110); CREATININE 0.8 mg/dL (0.6-1.0); GLOMERULAR FILTRATION RATE > 60; GLUCOSE 274 mg/dL (70-100); POTASSIUM 4.5 mEq/L (3.5-5.2); SODIUM 138 mEq/L (134-144); TOTAL PROTEIN 6.8 g/dL (6.3-8.2)
[2016-09-05] MEDS: ENOXAPARIN 40 MG/0.4 ML SYR SC SCH (08:12)
[2016-09-05] MEDS: FUROSEMIDE 40 MG/4 ML VIAL IVP SCH ×2 (08:12→14:52)
[2016-09-05] MEDS: INSULIN LISPRO 100 UNIT/ML SC SCH ×4 (08:12→17:46)
[2016-09-05] MEDS: metFORMIN HCL 500 MG TAB PO SCH ×2 (08:13→17:46)
[2016-09-05] MEDS: LISINOPRIL 20 MG TAB PO SCH (08:13)
[2016-09-05] MEDS: ASPIRIN EC 81 MG TAB PO SCH (08:13)
[2016-09-05] MEDS: CARVEDILOL 6.25 MG TAB PO SCH ×2 (08:13→17:46)
[2016-09-05] MEDS: SPIRONOLACTONE 25 MG TAB PO SCH (08:14)
[2016-09-05] MEDS: INSULIN GLARGINE 100 UNITS/ML SYRINGE SC SCH (08:33)
[2016-09-05] MEDS ORDERED: INSULIN GLARGINE 100 UNITS/ML SYRINGE SC ONE (09:30)
--- NOTE | 2016-09-05 15:40 | HOSPPROG ---
Hospitalist Progress Note Assessment/Plan: 51 yo F with NICM, EF 10-15%, s/p AICD placement, hypertension, hyperlipidemia, DM2, SERENITY and morbid obesity admitted this am with acute HF # acute decompensated heart failure - non-compliant with home meds, slowly diuresing - Increase Lasix to 40 IV TID - follow I/Os, daily weight, electrolytes - cont home meds including coreg, lisinopril, ASA - echo showed EF 25%, from 10-15% # acute respiratory failure - 2/2 above, wean O2 as able # DM2 - poor control on arrival. she required >50 units insulin yesterday, only on oral agents as outpt - Cont MTF (Cr ok) - Aggressively up-titrating Lantus/Lispro - check a1c (was 10.6 in 06/2016), likely needs to start insulin therapy at discharge # HTN -cont coreg, lisinopril, aldactone. holding norvasc for now while diuresing ( relatively normotensive) # dispo: cont inpt, CM consult for homelessness DVT ppx: lovenox Full code Subjective: PT feels a bit better today, still orthopneic with some SOB. NO fevers. No CP. Objective: Vital Signs Temp Pulse Resp BP Pulse Ox 36.9 C 86 18 136/89 H 96 09/05/16 11:56 09/05/16 12:20 09/05/16 12:20 09/05/16 11:56 09/05/16 12:20 Laboratory Results 09/05/16 04:18 09/04/16 09/05/16 09/06/16 05:59 05:59 05:59 Intake Total 738 790 Output Total 1950 2220 Balance -1212 -1430 PT 12.6 SEC (12.0-15.0) 09/04/16 04:15 INR 0.95 (0.83-1.16) 09/04/16 04:15 - Physical Exam Constitutional: no apparent distress Eyes: PERRL Ears, Nose, Mouth, Throat: moist mucous membranes Cardiovascular: regular rate and rhythym Respiratory: no respiratory distress, inspiratory crackles Gastrointestinal: normoactive bowel sounds, soft, non-tender abdomen Skin: warm Musculoskeletal: other (2+ b/l LE pitting edema) Neurologic: AAOx3 Psychiatric: interacting appropriately ICD10 Worksheet Patient Problems: Problems Problem Status Onset CHF exacerbation Acute Dyspnea Acute Hypoxia Acute
[2016-09-05] MEDS ORDERED: FUROSEMIDE 40 MG/4 ML VIAL IVP SCH (16:00)
[2016-09-06 02:45] LABS: HEMOGLOBIN A1C 11.2 % (4.0-6.0)
[2016-09-06] MEDS: IPRATROPIUM/ALBUTEROL 3 ML DEYVIAL IH SCH ×4 (05:03→21:18)
[2016-09-06 05:57] LABS: ANION GAP 10 mEq/L (8-16); CALCIUM 9.1 mg/dL (8.5-10.4); CARBON DIOXIDE 28 mEq/l (22-31); CHLORIDE 101 mEq/L (97-110); CREATININE 0.8 mg/dL (0.6-1.0); GLOMERULAR FILTRATION RATE > 60; GLUCOSE 184 mg/dL (70-100); POTASSIUM 4.7 mEq/L (3.5-5.2); SODIUM 139 mEq/L (134-144)
[2016-09-06] MEDS: INSULIN LISPRO 100 UNIT/ML SC SCH ×6 (08:03→17:47)
[2016-09-06] MEDS: INSULIN GLARGINE 100 UNITS/ML SYRINGE SC SCH (08:09)
[2016-09-06] MEDS: metFORMIN HCL 500 MG TAB PO SCH ×2 (08:11→17:48)
[2016-09-06] MEDS: ASPIRIN EC 81 MG TAB PO SCH (08:11)
[2016-09-06] MEDS: SPIRONOLACTONE 25 MG TAB PO SCH (08:11)
[2016-09-06] MEDS: ENOXAPARIN 40 MG/0.4 ML SYR SC SCH (08:11)
[2016-09-06] MEDS: LISINOPRIL 20 MG TAB PO SCH (08:11)
[2016-09-06] MEDS: FUROSEMIDE 40 MG/4 ML VIAL IVP SCH ×3 (08:12→15:45)
[2016-09-06] MEDS: CARVEDILOL 6.25 MG TAB PO SCH ×2 (08:12→17:48)
[2016-09-06] MEDS ORDERED: INSULIN GLARGINE 100 UNITS/ML SYRINGE SC SCH (09:00)
[2016-09-06] MEDS: ACETAMINOPHEN 325 MG TAB PO PRN (11:00)
--- NOTE | 2016-09-06 11:44 | HOSPPROG ---
Hospitalist Progress Note Assessment/Plan: 51 yo F with NICM, EF 10-15%, s/p AICD placement, hypertension, hyperlipidemia, DM2, SERENITY and morbid obesity admitted this am with acute HF # acute decompensated heart failure - non-compliant with home meds, slowly diuresing, weight down 3 kg since admission - Cont IV Lasix - follow I/Os, daily weight, electrolytes - cont home meds including coreg, lisinopril, ASA - echo showed EF 25%, from 10-15% # acute respiratory failure - 2/2 above, wean O2 as able # DM2 - poor control on arrival. she has required significant up-titration of insulin for glycemic control. BG's now in 100's. - Cont MTF (Cr ok) - a1c was 10, now up to 11.2, likely needs to start insulin therapy at discharge and pt agreeable to this, will need teaching # HTN -cont coreg, lisinopril, aldactone. holding norvasc for now while diuresing ( relatively normotensive) # dispo: cont inpt, CM consult for homelessness DVT ppx: lovenox Full code Subjective: Pt feels better, breathing improved. No complaints. Objective: Vital Signs Temp Pulse Resp BP Pulse Ox 36.8 C 88 22 H 128/92 H 99 09/06/16 08:00 09/06/16 08:00 09/06/16 08:00 09/06/16 08:00 09/06/16 08:00 Laboratory Results 09/06/16 04:19 09/05/16 09/06/16 09/07/16 05:59 05:59 05:59 Intake Total 738 1490 240 Output Total 1950 3540 1150 Balance -1212 -2050 -910 PT 12.6 SEC (12.0-15.0) 09/04/16 04:15 INR 0.95 (0.83-1.16) 09/04/16 04:15 - Physical Exam Constitutional: no apparent distress Eyes: PERRL Ears, Nose, Mouth, Throat: moist mucous membranes Cardiovascular: regular rate and rhythym, JVD Respiratory: no respiratory distress, clear to auscultation Gastrointestinal: normoactive bowel sounds, soft, non-tender abdomen Skin: warm Musculoskeletal: other (2+ LE edema) Neurologic: AAOx3 Psychiatric: interacting appropriately ICD10 Worksheet Patient Problems: Problems Problem Status Onset CHF exacerbation Acute Dyspnea Acute Hypoxia Acute
[2016-09-07 05:14] LABS: ANION GAP 10 mEq/L (8-16); CALCIUM 9.6 mg/dL (8.5-10.4); CARBON DIOXIDE 26 mEq/l (22-31); CHLORIDE 100 mEq/L (97-110); CREATININE 0.8 mg/dL (0.6-1.0); GLOMERULAR FILTRATION RATE > 60; GLUCOSE 178 mg/dL (70-100); POTASSIUM 4.5 mEq/L (3.5-5.2); SODIUM 136 mEq/L (134-144)
[2016-09-07] MEDS: IPRATROPIUM/ALBUTEROL 3 ML DEYVIAL IH SCH ×4 (06:24→20:57)
[2016-09-07] MEDS: INSULIN LISPRO 100 UNIT/ML SC SCH ×6 (08:50→18:31)
[2016-09-07] MEDS: ENOXAPARIN 40 MG/0.4 ML SYR SC SCH (08:55)
[2016-09-07] MEDS: metFORMIN HCL 500 MG TAB PO SCH ×2 (08:55→18:32)
[2016-09-07] MEDS: INSULIN GLARGINE 100 UNITS/ML SYRINGE SC SCH (08:55)
[2016-09-07] MEDS: SPIRONOLACTONE 25 MG TAB PO SCH (08:55)
[2016-09-07] MEDS: LISINOPRIL 20 MG TAB PO SCH (08:55)
[2016-09-07] MEDS: CARVEDILOL 6.25 MG TAB PO SCH ×2 (08:55→18:32)
[2016-09-07] MEDS: ASPIRIN EC 81 MG TAB PO SCH (08:55)
[2016-09-07] MEDS: FUROSEMIDE 40 MG/4 ML VIAL IVP SCH ×2 (13:26→18:32)
[2016-09-07] MEDS ORDERED: INSULIN GLARGINE 100 UNITS/ML SYRINGE SC SCH (13:37)
--- NOTE | 2016-09-07 13:56 | HOSPPROG ---
Hospitalist Progress Note Assessment/Plan: 51 yo F with NICM, EF 10-15%, s/p AICD placement, hypertension, hyperlipidemia, DM2, SERENITY and morbid obesity admitted this am with acute HF # acute decompensated heart failure - non-adherent to diuretic regimen, slowly diuresing, weight down ~6 kg since admission. reported dry weight is 250 lbs, she is 286 currently. Still has LE edema and JVD - Cont IV Lasix - follow I/Os, daily weight, electrolytes - cont home meds including coreg, lisinopril, ASA - echo showed EF 25%, from 10-15% - follow bmp, likely diurese until rising BUN to help determine dry weight # acute respiratory failure - 2/2 above, wean O2 as able # DM2 - poor control on arrival. she has required significant up-titration of insulin for glycemic control. a1c was 10, now up to 11.2 - Cont MTF (Cr ok) - likely needs to start insulin therapy at discharge and pt agreeable to this, will need teaching prior to dc # HTN -cont coreg, lisinopril, aldactone. holding norvasc for now while diuresing ( relatively normotensive) # dispo: cont inpt, CM consult for homelessness. she stopped her diuretics due to lack of toilet access during day when she needs to leave the homeless alf. working on options for her to have toilet access. DVT ppx: lovenox Full code Subjective: PT feels ok. states her dry weight is 250 lbs. Denies CP or SOB, still a bit orthopneic. Objective: Vital Signs Temp Pulse Resp BP Pulse Ox 36.8 C 90 22 H 133/90 H 96 09/07/16 11:08 09/07/16 12:17 09/07/16 12:17 09/07/16 11:08 09/07/16 12:17 Laboratory Results 09/07/16 04:02 09/06/16 09/07/16 09/08/16 05:59 05:59 05:59 Intake Total 1490 1500 250 Output Total 3540 3550 Balance -2049 -2049 250 PT 12.6 SEC (12.0-15.0) 09/04/16 04:15 INR 0.95 (0.83-1.16) 09/04/16 04:15 - Physical Exam Constitutional: no apparent distress Eyes: PERRL Ears, Nose, Mouth, Throat: moist mucous membranes Cardiovascular: regular rate and rhythym, JVD Respiratory: no respiratory distress, clear to auscultation Gastrointestinal: normoactive bowel sounds, soft, non-tender abdomen Skin: warm Musculoskeletal: full muscle strength, other (1-2+ Le edema) Neurologic: AAOx3 Psychiatric: interacting appropriately ICD10 Worksheet Patient Problems: Problems Problem Status Onset CHF exacerbation Acute Dyspnea Acute Hypoxia Acute
[2016-09-07] MEDS: ACETAMINOPHEN 325 MG TAB PO PRN (19:53)
[2016-09-08 05:00] LABS: ANION GAP 11 mEq/L (8-16); CALCIUM 9.5 mg/dL (8.5-10.4); CARBON DIOXIDE 25 mEq/l (22-31); CHLORIDE 100 mEq/L (97-110); CREATININE 0.8 mg/dL (0.6-1.0); GLOMERULAR FILTRATION RATE > 60; GLUCOSE 201 mg/dL (70-100); POTASSIUM 4.3 mEq/L (3.5-5.2); SODIUM 136 mEq/L (134-144)
[2016-09-08] MEDS: IPRATROPIUM/ALBUTEROL 3 ML DEYVIAL IH SCH ×3 (05:29→15:52)
[2016-09-08] MEDS: metFORMIN HCL 500 MG TAB PO SCH (08:49)
[2016-09-08] MEDS: ENOXAPARIN 40 MG/0.4 ML SYR SC SCH (08:49)
[2016-09-08] MEDS: INSULIN LISPRO 100 UNIT/ML SC SCH ×4 (08:50→13:01)
[2016-09-08] MEDS: LISINOPRIL 20 MG TAB PO SCH (08:50)
[2016-09-08] MEDS: CARVEDILOL 6.25 MG TAB PO SCH (08:50)
[2016-09-08] MEDS: ASPIRIN EC 81 MG TAB PO SCH (08:50)
[2016-09-08] MEDS: SPIRONOLACTONE 25 MG TAB PO SCH (08:50)
[2016-09-08] MEDS: FUROSEMIDE 40 MG/4 ML VIAL IVP SCH (08:52)
[2016-09-08] MEDS ORDERED: amLODIPine BESYLATE 5 MG TAB PO SCH (09:00)
[2016-09-08] MEDS ORDERED: INSULIN GLARGINE 100 UNITS/ML SYRINGE SC SCH (09:00)
[2016-09-08 12:18] VITALS: PULSE 80; RESP 28; TEMP 98.4; O2SAT 96
[2016-09-08 12:20] VITALS: BP 89/64
--- NOTE | 2016-09-08 21:49 | GDS ---
[f rep st] DISCHARGE SUMMARY DISCHARGE DIAGNOSES: 1. Acute systolic heart failure. Nonischemic cardiomyopathy with an ejection fraction of 25%, impr rosalia from 10%-15% status post AICD placement. 2. Acute on chronic hypoxemic respiratory failure. 3. Diabetes mellitus, poorly controlled with hemoglobin A1c of 11.2. 4. Hypertension. 5. Obesity. HISTORY: For details, please see dictated history and physical dated September 04, 2016. In brief, the pa yves is a 51-year-old female with a history of nonischemic cardiomyopathy with an EF of 15% who pre viously underwent AICD placement, diabetes, hypertension, obstructive sleep apnea and severe obesity who presents to the emergency department with shortness of breath was found to be in acute heart fa ilure. She lives at the homeless assisted and reports non adherence to her Lasix therapy due to lack of toilet facilities during the day, as she is required to the leave the assisted in the daytime. S he is admitted to the hospital for further management of her acute heart failure. HOSPITAL COURSE: Patient was admitted to the progressive care unit. She was started on IV Lasix 40 mg twice daily and her carvedilol, lisinopril, and spironolactone were resumed. Her amlodipine was initially held due to some mild hypotension. She diuresed approximately 7 kg, and her symptoms wer e greatly improved. She was continued on her metformin for diabetes. Unfortunately, her blood suga rs were in the 300-400 range on admission, and her hemoglobin A1c was over 11. Therefore, she was s tarted on insulin therapy. This was up titrated to Lantus of 20 units at bedtime with additional in sulin lispro by sliding scale. At discharge, we have opted to continue just the Lantus for the sake of simplicity in this homeless patient, as the care team as expressed concern with her being able t o manage multiple blood sugar checks and insulin doses per day. She did have some insulin teaching and was discharged with Levemir pen, take 20 units at bedtime. She will also continue her metformin . She is instructed to follow up with her primary care physician at the [facility]. DISPOSITION: Patient is discharged home in stable condition. DISCHARGE MEDICATIONS: She is to continue all of her outpatient medications as previously prescribe d including Lasix 80 mg p.o. daily, lisinopril 20 mg p.o. daily, aspirin 81 mg p.o. daily, spironola ctone 25 mg p.o. daily, carvedilol 6.25 mg p.o. daily, metformin 1000 mg p.o. twice daily, Norvasc 5 mg p.o. daily and glipizide 5 mg p.o. twice daily. New medications at discharge include Levemir flex touch pen 20 units subcutaneous at bedtime. FOLLOW UP: 1. Primary care provider at the [facility]. 2. [facility]. /[id number]/MODL
== END 2016-09-08 16:55 | disposition home or self-care (01) | DRG 292 ==
LOC: EDUNIT# → F2W 12:59
PROVIDERS: ADMIT Internal Medicine; ATTEND Internal Medicine
DX: I50.21 Acute systolic (congestive) heart failure (principal); E11.9 Type 2 diabetes mellitus without complications; G47.33 Obstructive sleep apnea (adult) (pediatric); E66.01 Morbid (severe) obesity due to excess calories; Z68.42 Body mass index [BMI] 45.0-49.9, adult; I10 Essential (primary) hypertension; Z95.810 Presence of automatic (implantable) cardiac defibrillator; Z91.128 Patient's intentional underdosing of medication regimen for other reason; Z59.0 Homelessness
CPT/HCPCS: 80305; 82947-QW; 96374; J1650; J1815

== ENCOUNTER 2016-10-15 07:40 | Emergency (ER) | payer MEDICAID ==
[2016-10-15] MEDS ORDERED: NS 1,000 ML IV ONE (07:49)
[2016-10-15 07:57] LABS: ABSOLUTE IMMATURE GRANULOCYTES 0.06 10^3/uL (0.00-0.10); ADD DIFF? NO; ADD MORPH? NO; ADD SCAN? NO; ATYPICAL LYMPHOCYTE FLAG 0 (0-99); FRAGMENT RBC FLAG 0 (0-99); HEMOGLOBIN 13.4 g/dL (12.6-16.3); LEFT SHIFT FLG 20 (0-99); LIPEMIA HEMOLYSIS FLAG 80 (0-99); MEAN CELL HEMOGLOBIN CONCENTR. 32.7 g/dL (32.4-36.7); MEAN CELL VOLUME 82.5 fL (81.5-99.8); MEAN PLATELET VOLUME 9.9 fL (8.7-11.7); PLATELET CLUMPS FLAG 0 (0-99); PLATELET COUNT 337 10^3/uL (150-400); RED BLOOD CELL COUNT 4.97 10^6/uL (4.18-5.33); RED CELL DISTRIBUTION WIDTH 14.3 % (11.5-15.2)
--- NOTE | 2016-10-15 08:04 | EDPHY ---
H & P Time Seen by Provider: 10/15/16 07:49 HPI/ROS: CHIEF COMPLAINT: Mild dyspnea HISTORY OF PRESENT ILLNESS: The patient presents to the ED with acute dyspnea that began earlier today. She does have a history of congestive heart failure and cardiomyopathy. She was hospitalized approximately 1 month ago for decompensation of this disease. The patient also has a history of poorly controlled diabetes. Patient tells me that last night she developed dyspnea and PND. She reportedly had mild ongoing symptoms today which prompted her evaluation in the emergency department. She reportedly has been compliant with all of her medications although has not been testing her blood glucose regularly over the past week. The patient denies any complaints of fever or cough. The patient denies acute weight gain. The patient denies additional acute complaints. REVIEW OF SYSTEMS: A comprehensive 10 point review of systems is otherwise negative aside from elements mentioned in the history of present illness. Source: Patient Exam Limitations: No limitations - Personal History Current Tetanus/Diphtheria Vaccine: Yes Current Tetanus Diphtheria and Acellular Pertussis (TDAP): Yes - Medical/Surgical History Hx Asthma: Yes Hx Chronic Respiratory Disease: Yes Hx Diabetes: Yes Hx Cardiac Disease: Yes Hx Renal Disease: No Hx Cirrhosis: No Hx Alcoholism: No Hx HIV/AIDS: No Hx Splenectomy or Spleen Trauma: No Other PMH: CHF, DIABETES, SERENITY;HTN; BRAIN ANEURYSM 1 YR [id number]; COCAINE ABUSE X 25YRS AGO--QUIT 3 YRS AGO;ASTHMA A CHILD - Social History Smoking Status: Never smoked - Physical Exam Exam: General Appearance: Obese female, no acute distress Eyes: Pupils equal and round no pallor or injection ENT, Mouth: Mucous membranes moist Respiratory: There are no retractions, lungs are clear to auscultation Cardiovascular: Regular rate and rhythm Gastrointestinal: Soft, nontender Neurological: 5/5 strength noted all 4 extremities Skin: Warm and dry, no rashes Musculoskeletal: Neck is supple nontender Extremities: symmetrical, full range of motion Constitutional: Initial Vital Signs Temperature (C) 36.6 C 10/15/16 07:50 Heart Rate 80 10/15/16 07:50 Respiratory Rate 19 10/15/16 07:50 Blood Pressure 151/80 H 10/15/16 07:50 O2 Sat (%) 93 10/15/16 07:50 O2 Delivery Mode Nasal Cannula O2 (L/minute) 2 Allergies/Adverse Reactions: ceftriaxone sodium [From Rocephin] Allergy (Verified 08/04/16 09:19) Home Medications: Medication Instructions Recorded Aspirin EC [Aspirin EC 81 mg (*)] 81 mg PO DAILY 06/18/16 Lisinopril [Zestril 20 mg (*)] 20 mg PO DAILY 06/18/16 Carvedilol [Coreg (*)] 6.25 mg PO BIDMEAL 06/24/16 Spironolactone [Aldactone 25 MG 25 mg PO DAILY 06/24/16 (*)] metFORMIN HCL [Glucophage 500 mg 1,000 mg PO BIDMEAL 07/15/16 (*)] amLODIPine BESYLATE [Norvasc 5 mg 5 mg PO DAILY 09/04/16 (*)] glipiZIDE [Glipizide] 5 mg PO BIDAC 09/04/16 Furosemide [Lasix 40 MG (*)] 80 mg PO DAILY #60 tab 09/08/16 Insulin Detemir [Levemir Flextouch] 20 unit SQ HS #30 insuln.pen 09/08/16 Medical Decision Making - Diagnostics EKG Interpretation: EKG: Complete interpretation has been separately recorded in the [employer] archive. Summary impression: Sinus rhythm, rate 75, nonspecific ST T wave changes noted Imaging Results: Imaging Impressions Chest X-Ray 10/15/16 07:49 Impression: Radiographically stable from 09/04/2016. ED Course/Re-evaluation: The patient presents to the ED for evaluation of a mild episode of dyspnea. I reviewed the patient's extensive past medical records. The patient has no evidence of acute congestive heart failure noted on her chest x-ray. The patient has no acute oxygen requirement in the ED. At this point time the patient seems stable regarding her congestive heart failure. She does have mild hyperglycemia which is not unusual for her. She has no evidence of diabetic ketoacidosis. The patient was reexamined by myself at 8:30 a.m.. She appears well and in no acute respiratory distress. The patient will be discharged from the emergency department. She will follow up with her primary care provider regarding her ongoing diabetic management. She also will follow up with her nutrition partner as needed. The patient is instructed to return to the ED for markedly worsening symptoms, dyspnea or other concerns. Differential Diagnosis: Differential diagnosis considered includes pneumonia, congestive heart failure, arrhythmia, diabetic ketoacidosis, myocardial infarction - Data Points Laboratory Results: Laboratory Results 10/15/16 07:40 10/15/16 07:40 10/15/16 10/15/16 10/15/16 07:40 07:40 07:40 WBC 6.14 10^3/uL 10^3/uL (3.80-9.50) RBC 4.97 10^6/uL 10^6/uL (4.18-5.33) Hgb 13.4 g/dL g/dL (12.6-16.3) Hct 41.0 % % (38.0-47.0) MCV 82.5 fL fL (81.5-99.8) MCH 27.0 pg L pg (27.9-34.1) MCHC 32.7 g/dL g/dL (32.4-36.7) RDW 14.3 % % (11.5-15.2) Plt Count 337 10^3/uL 10^3/uL (150-400) MPV 9.9 fL fL (8.7-11.7) Neut % (Auto) 55.3 % % (39.3-74.2) Lymph % (Auto) 33.7 % % (15.0-45.0) Castro % (Auto) 7.2 % % (4.5-13.0) Eos % (Auto) 2.0 % % (0.6-7.6) Baso % (Auto) 0.8 % % (0.3-1.7) Nucleat RBC Rel Count 0.0 % % (0.0-0.2) Absolute Neuts (auto) 3.40 10^3/uL 10^3/uL (1.70-6.50) Absolute Lymphs (auto) 2.07 10^3/uL 10^3/uL (1.00-3.00) Absolute Monos (auto) 0.44 10^3/uL 10^3/uL (0.30-0.80) Absolute Eos (auto) 0.12 10^3/uL 10^3/uL (0.03-0.40) Absolute Basos (auto) 0.05 10^3/uL 10^3/uL (0.02-0.10) Absolute Nucleated RBC 0.00 10^3/uL 10^3/uL (0-0.01) Immature Gran % 1.0 % % (0.0-1.1) Immature Gran # 0.06 10^3/uL 10^3/uL (0.00-0.10) PT 13.0 SEC SEC (12.0-15.0) INR 0.99 (0.83-1.16) Sodium 136 mEq/L mEq/L (134-144) Potassium 3.8 mEq/L mEq/L (3.5-5.2) Chloride 104 mEq/L mEq/L (97-110) Carbon Dioxide 19 mEq/l L mEq/l (22-31) Anion Gap 13 mEq/L mEq/L (8-16) BUN 11 mg/dL mg/dL (7-23) Creatinine 0.8 mg/dL mg/dL (0.6-1.0) Estimated GFR > 60 Glucose 360 mg/dL H mg/dL (70-100) Calcium 9.1 mg/dL mg/dL (8.5-10.4) Troponin I 0.017 ng/mL ng/mL (0-0.034) NT-Pro-B Natriuret Pep 1060 pg/mL H pg/mL (0-125) Medications Given: Discontinued Medications Sodium Chloride (Ns) 1,000 mls @ 0 mls/hr IV ONCE ONE; Wide Open PRN Reason: Protocol Stop: 10/15/16 07:50 Last Admin: 10/15/16 07:56 Dose: 1,000 mls Departure - Departure Disposition: Home, Routine, Self-Care Clinical Impression: Congestive heart failure with cardiomyopathy, Dyspnea, Hyperglycemia Condition: Good Instructions: Dyspnea (ED) Additional Instructions: 1. Please follow up with your primary care provider for a recheck of your blood sugar in the next week. Please contact [facility] today for assistance with procuring new diabetic test strips. 2. Please follow up with your nutrition partner as scheduled. 3. Please return to the ED for markedly worsening symptoms, difficulty breathing , chest pain or other concerns. Referrals: María Estrella MD [Doctor of Osteopathy] - As per Instructions
[2016-10-15 08:07] LABS: ANION GAP 13 mEq/L (8-16); CALCIUM 9.1 mg/dL (8.5-10.4); CARBON DIOXIDE 19 mEq/l (22-31); CHLORIDE 104 mEq/L (97-110); CREATININE 0.8 mg/dL (0.6-1.0); GLOMERULAR FILTRATION RATE > 60; GLUCOSE 360 mg/dL (70-100); POTASSIUM 3.8 mEq/L (3.5-5.2); SODIUM 136 mEq/L (134-144)
[2016-10-15 08:08] LABS: INR 0.99 (0.83-1.16)
[2016-10-15 08:19] LABS: TROPONIN I 0.017 ng/mL (0-0.034)
--- NOTE | 2016-10-15 08:52 | CPEKG ---
Heart Rate: 75 RR Interval: 800 P-R Interval: 160 QRSD Interval: 88 QT Interval: 440 QTC Interval: 492 P [place]: 27 QRS [place]: 3 T Wave [place]: -46 EKG Severity - ABNORMAL ECG - EKG Impression: SINUS RHYTHM EKG Impression: LEFT VENTRICULAR HYPERTROPHY EKG Impression: BORDERLINE PROLONGED QT INTERVAL Electronically Signed By: Cameron Malloy 15-Oct-2016 08:53:07
[2016-10-15 09:17] VITALS: BP 133/96; PULSE 81; RESP 14; TEMP 97.5; O2SAT 93
== END 2016-10-15 09:51 | disposition home or self-care (01) ==
LOC: EDUNIT#
DX: I50.9 Heart failure, unspecified (principal); I42.9 Cardiomyopathy, unspecified; E11.65 Type 2 diabetes mellitus with hyperglycemia; J45.909 Unspecified asthma, uncomplicated; I10 Essential (primary) hypertension; Z79.4 Long term (current) use of insulin; Z79.82 Long term (current) use of aspirin; Z79.84 Long term (current) use of oral hypoglycemic drugs

== ENCOUNTER 2016-11-09 18:46 | Emergency (ER) | payer MEDICAID ==
--- NOTE | 2016-11-09 18:51 | EDPHY ---
H & P Time Seen by Provider: 11/09/16 18:50 - Medical/Surgical History Hx Asthma: Yes Hx Chronic Respiratory Disease: Yes Hx Diabetes: Yes Hx Cardiac Disease: Yes Hx Renal Disease: No Hx Cirrhosis: No Hx Alcoholism: No Hx HIV/AIDS: No Hx Splenectomy or Spleen Trauma: No Other PMH: CHF, DIABETES, SERENITY;HTN; [place] [facility] [id number] COCAINE ABUSE X 25YRS AGO--QUIT 3 YRS AGO;ASTHMA A CHILD - Social History Smoking Status: Never smoked Constitutional: Initial Vital Signs Temperature (C) 37.1 C 11/09/16 18:46 Heart Rate 90 11/09/16 18:46 Respiratory Rate 16 11/09/16 18:46 Blood Pressure 114/77 11/09/16 18:46 O2 Sat (%) 88 L 11/09/16 18:46 O2 Delivery Mode Room Air Allergies/Adverse Reactions: ceftriaxone sodium [From Rocephin] Allergy (Verified 08/04/16 09:19) Home Medications: Medication Instructions Recorded Aspirin EC [Aspirin EC 81 mg (*)] 81 mg PO DAILY 06/18/16 Lisinopril [Zestril 20 mg (*)] 20 mg PO DAILY 06/18/16 Carvedilol [Coreg (*)] 6.25 mg PO BIDMEAL 06/24/16 Spironolactone [Aldactone 25 MG 25 mg PO DAILY 06/24/16 (*)] metFORMIN HCL [Glucophage 500 mg 1,000 mg PO BIDMEAL 07/15/16 (*)] amLODIPine BESYLATE [Norvasc 5 mg 5 mg PO DAILY 09/04/16 (*)] glipiZIDE [Glipizide] 5 mg PO BIDAC 09/04/16 Furosemide [Lasix 40 MG (*)] 80 mg PO DAILY #60 tab 09/08/16 Insulin Detemir [Levemir Flextouch] 20 unit SQ HS #30 insuln.pen 09/08/16 Pantoprazole Sodium [Protonix] 20 mg PO DAILY #30 tablet. 11/09/16 Medical Decision Making ED Course/Re-evaluation: CHIEF COMPLAINT: "My gastritis caught up with me again" HISTORY OF PRESENT ILLNESS: This patient is a 51 year old female complaining of epigastric pain onset this morning around 10:00 secondary to an acute exacerbation of her chronic gastritis. She states her symptoms are consistent with her usual flare-ups of gastritis. She has been taking Ranitidine, with little relief of symptoms, She was previously taking Nexium and feeling well, but her insurance has stopped covering this medication. REVIEW OF SYSTEMS: A 10 point review of systems was performed and is negative with the exception of the elements mentioned in the history of present illness. PHYSICAL EXAM: HR, BP, O2 Sat, RR. Temp noted General Appearance: Alert, well hydrated, appropriate, and non-toxic appearing. Head: Atraumatic without obvious injury Eyes: Pupils equal, round, reactive to light and accommodation, EOMI, no trauma , no injection. Nose: Atraumatic Throat: There is no erythema or exudates, no lesions, normal tonsils, mucus membranes moist. Neck: Supple, nontender, no lymphadenopathy. Respiratory: No retractions, no distress, no wheezes, and no accessory muscle use. Lungs are clear to auscultation bilaterally. Cardiovascular: Regular rate and rhythm. Good capillary refill all extremities. Gastrointestinal: Epigastric tenderness. Abdomen is soft, non-distended, no masses, no rebound, no guarding, no peritoneal signs. Musculoskeletal: Normal active ROM of all extremities, atraumatic. Neurological: Alert, appropriate, and interactive. Nonfocal neuro exam. Skin: No rashes, good turgor, no nodules on palpation. Past medical history: Congestive heart failure. Diabetes. Obstructive sleep apnea. Past surgical history: Noncontributory. Family history: Noncontributory. Social history: PCP Marcy Owens. DIFFERENTIAL DIAGNOSIS: Includes but not limited to gastritis, cholecystitis, and appendicitis. MEDICAL DECISION MAKING: This patient is a 51 year old female presenting with an exacerbation of her chronic gastritis. Her symptoms were previously well controlled with Nexium, but she is failing treatment with H2 blockers (Ranitidine). This patient will require proton pump inhibitors for successful management of her gastritis. Plan to administer IV Protonix, IV Dilaudid, GI cocktail. The patient is feeling improved. Plan to discharge home in good condition with prescription for Protonix and instructions to follow up with primary care for continued management of her medication regimen. The patient is comfortable with this plan. - Data Points Medications Given: Discontinued Medications Al Hydroxide/Mg Hydroxide (Maalox Susp) 30 ml PO ONCE ONE Stop: 11/09/16 19:11 Last Admin: 11/09/16 19:37 Dose: 30 ml Hydromorphone HCl (Dilaudid) 1 mg IVP EDNOW ONE Stop: 11/09/16 19:11 Last Admin: 11/09/16 20:23 Dose: Not Given Hyoscyamine Sulfate (Levsin, Hyomax-Sl) 0.25 mg PO ONCE ONE Stop: 11/09/16 19:11 Last Admin: 11/09/16 19:38 Dose: 0.25 mg Pantoprazole Sodium 40 mg/ (Sodium Chloride) 100 mls @ 200 mls/hr IV EDNOW ONE Stop: 11/09/16 19:40 Last Admin: 11/09/16 19:37 Dose: 100 mls Lidocaine (Lidocaine 2% Viscous) 15 ml PO ONCE ONE Stop: 11/09/16 19:11 Last Admin: 11/09/16 19:37 Dose: 15 ml Departure - Departure Disposition: Home, Routine, Self-Care Clinical Impression: Gastritis Qualifiers: Gastritis type: other gastritis Chronicity: chronic Gastritis bleeding: without bleeding Qualified Code(s): K29.50 - Unspecified chronic gastritis without bleeding Condition: Good Instructions: Gastritis (ED) Additional Instructions: 1. Follow up with your primary care provider for continued management of your medication regimen. 2. Take your Protonix as prescribed to relieve your symptoms. 3. Return to the emergency department if you develop fever, chills, vomiting, or other worsening of condition. Referrals: Marcy Owens, PAC [Primary Care Provider] - As per Instructions Prescriptions: Pantoprazole Sodium [Protonix] 20 mg PO DAILY #30 tablet. Report Scribed for: Nicolas Reyes Report Scribed by: Tori Freeman Date of Report: 11/09/16 Time of Report: 19:28
[2016-11-09 19:06] VITALS: PULSE 90; RESP 16; TEMP 98.8
[2016-11-09] MEDS ORDERED: LIDOCAINE 2% VISCOUS 15 ML UDCUP PO ONE (19:10)
[2016-11-09] MEDS ORDERED: HYOSCYAMINE SULFATE 0.125 MG TAB PO ONE (19:10)
[2016-11-09] MEDS ORDERED: HYDROmorphONE/DILAUDID 1 MG/ML SYR IVP ONE (19:10)
[2016-11-09] MEDS ORDERED: MAG HYDROX/AL HYDROX/SIMETH 30 ML UDCUP PO ONE (19:10)
[2016-11-09] MEDS ORDERED: PANTOPRAZOLE SODIUM 40 MG in NS 100 ML IV ONE (19:11)
[2016-11-09 21:09] VITALS: BP 129/99; O2SAT 100
== END 2016-11-09 21:07 | disposition home or self-care (01) ==
LOC: EDUNIT# → EDBD
DX: K29.50 Unspecified chronic gastritis without bleeding (principal); I11.0 Hypertensive heart disease with heart failure; I50.9 Heart failure, unspecified; E11.9 Type 2 diabetes mellitus without complications; J45.909 Unspecified asthma, uncomplicated; Z79.4 Long term (current) use of insulin; Z79.82 Long term (current) use of aspirin
CPT/HCPCS: 96365; J1170

== ENCOUNTER 2016-11-17 08:34 | Emergency (ER) | payer MEDICAID ==
[2016-11-17 08:39] VITALS: TEMP 97.9
[2016-11-17] MEDS ORDERED: RANITIDINE 50 MG/2 ML VIAL IVP ONE (09:22)
[2016-11-17] MEDS ORDERED: methylPREDNISolone SOD SUCC 125 MG/2 ML VIAL IVP ONE (09:22)
--- NOTE | 2016-11-17 09:26 | EDPHY ---
H & P Stated Complaint: resp diff. & Hives Source: Patient, Old records - Personal History LMP (Females 10-55): Post Menopausal Current Tetanus/Diphtheria Vaccine: Yes Current Tetanus Diphtheria and Acellular Pertussis (TDAP): Yes Tetanus Vaccine Date: 2016 - Medical/Surgical History Hx Asthma: Yes Hx Chronic Respiratory Disease: Yes Hx Diabetes: Yes Hx Cardiac Disease: Yes Hx Renal Disease: No Hx Cirrhosis: No Hx Alcoholism: No Hx HIV/AIDS: No Hx Splenectomy or Spleen Trauma: No Other PMH: CHF, DIABETES, SERENITY;HTN; BRAIN ANEURYSM 1 [id number]; COCAINE ABUSE X 25YRS AGO--QUIT 3 YRS AGO;ASTHMA A CHILD - Social History Smoking Status: Never smoked Time Seen by Provider: 11/17/16 09:14 HPI/ROS: CHIEF COMPLAINT: Hives, intermittent shortness of breath HISTORY OF PRESENT ILLNESS: This is a 51-year-old female presenting to the emergency department reports onset of hives this morning, and as she was walking over to the emergency department intermittent shortness of breath. Patient states she is not sure what she may be eating this morning a come into contact, she did report she had a concern of bedbugs at the long term but not sure. Speaking in full sentences, nonlabored respiratory effort patient is playing on her phone. Patient does have a history of CHF, hypertension questionable asthma. REVIEW OF SYSTEMS: Constitutional: No fever, no chills. Eyes: No discharge. No blurred vision ENT: No sore throat. Cardiovascular: No chest pain, no palpitations. Respiratory: No cough, intermittent shortness of breath. Gastrointestinal: No abdominal pain, no vomiting. Genitourinary: No hematuria. Musculoskeletal: No back pain. Skin: Rash hives Neurological: No headache. (Shalini Birmingham) - Physical Exam Exam: General Appearance: Alert, no distress. Eyes: Pupils equal and round no pallor or injection. ENT, Mouth: Mucous membranes moist. Nonlabored respiratory effort Respiratory: There are no retractions, lungs are clear to auscultation. Speaking in full sentences Cardiovascular: Regular rate and rhythm. Gastrointestinal: Abdomen is soft and nontender, no masses, bowel sounds normal. Neurological: No focal deficits answering questions appropriately Skin: Warm and dry, uticaria Musculoskeletal: Neck is supple nontender. Extremities: symmetrical, full range of motion. Psychiatric: Patient is oriented X 3, there is no agitation. (Shalini Birmingham) Constitutional: Initial Vital Signs Temperature (C) 36.6 C 11/17/16 08:36 Heart Rate 92 11/17/16 08:36 Respiratory Rate 24 H 11/17/16 08:36 Blood Pressure 119/77 11/17/16 08:36 O2 Sat (%) 95 11/17/16 08:36 O2 Delivery Mode Room Air Allergies/Adverse Reactions: ceftriaxone sodium [From Rocephin] Allergy (Verified 08/04/16 09:19) Home Medications: Medication Instructions Recorded Aspirin EC [Aspirin EC 81 mg (*)] 81 mg PO DAILY 06/18/16 Lisinopril [Zestril 20 mg (*)] 20 mg PO DAILY 06/18/16 Carvedilol [Coreg (*)] 6.25 mg PO BIDMEAL 06/24/16 Spironolactone [Aldactone 25 MG 25 mg PO DAILY 06/24/16 (*)] metFORMIN HCL [Glucophage 500 mg 1,000 mg PO BIDMEAL 07/15/16 (*)] amLODIPine BESYLATE [Norvasc 5 mg 5 mg PO DAILY 09/04/16 (*)] glipiZIDE [Glipizide] 5 mg PO BIDAC 09/04/16 Furosemide [Lasix 40 MG (*)] 80 mg PO DAILY #60 tab 09/08/16 Insulin Detemir [Levemir Flextouch] 20 unit SQ HS #30 insuln.pen 09/08/16 Pantoprazole Sodium [Protonix] 20 mg PO DAILY #30 tablet. 11/09/16 diphenhydrAMINE [Benadryl 25 MG 25 mg PO Q6-8PRN PRN #30 tab 11/17/16 (*)] predniSONE 40 mg PO DAILY #10 tab 11/17/16 Medical Decision Making ED Course/Re-evaluation: Discussed ED plan of care: Reviewed medical records. IV--> Solu-Medrol, ranitidine, Benadryl will re-evaluate 0940: Staff having a hard time placing IV, patient requested medications p.o. meds ordered change 1030: Patient re-evaluation---> patient states doing a lot better decrease in itching no shortness of breath. Discussed discharge instructions with patient-- -> stable, discharge home (Shalini Birmingham) I did not see this patient while she was in the emergency department. However her care was discussed with the nurse practitioner while the patient was in the department. I agree with treatment plan and management (Trung Wolf) Differential Diagnosis: Other differential diagnosis considered but not limited to anaphylaxis, cellulitis, and CHF exacerbation (Shalini Birmingham) - Data Points Medications Given: Discontinued Medications Diphenhydramine HCl (Benadryl) 50 mg PO EDNOW ONE Stop: 11/17/16 09:43 Last Admin: 11/17/16 09:49 Dose: 50 mg Famotidine (Pepcid) 40 mg PO EDNOW ONE Stop: 11/17/16 09:43 Last Admin: 11/17/16 09:49 Dose: 40 mg Methylprednisolone Sodium Succinate (Solu-Medrol) 125 mg IM EDNOW ONE Stop: 11/17/16 09:43 Last Admin: 11/17/16 09:49 Dose: 125 mg Departure - Departure Disposition: Home, Routine, Self-Care Clinical Impression: Allergic reaction Qualifiers: Encounter type: initial encounter Qualified Code(s): T78.40XA - Allergy, unspecified, initial encounter Condition: Good Instructions: Urticaria (ED), Allergies (ED) Additional Instructions: 1. I have given you a prescription for prednisone take that for the next 5 days 2. Continue taking Benadryl 25-50 mg every 6-8 hours this can help to decrease itching 3. I also recommended that looking at ear bedding and your close as bedbugs can also cause hives 4. Follow up with primary care provider this week or Tuesday Referrals: NONE *PRIMARY CARE P,. [Primary Care Provider] - As per Instructions [facility],. [Clinic] - As per Instructions Prescriptions: diphenhydrAMINE [Benadryl 25 MG (*)] 25 mg PO Q6-8PRN PRN #30 tab PRN Reason: Itching predniSONE 40 mg PO DAILY #10 tab
[2016-11-17] MEDS ORDERED: methylPREDNISolone SOD SUCC 125 MG/2 ML VIAL IM ONE (09:42)
[2016-11-17] MEDS ORDERED: diphenhydrAMINE 25 MG CAP PO ONE (09:42)
[2016-11-17] MEDS ORDERED: FAMOTIDINE 20 MG TAB PO ONE (09:42)
[2016-11-17 10:41] VITALS: BP 120/91; PULSE 84; RESP 18; O2SAT 93
== END 2016-11-17 10:57 | disposition home or self-care (01) ==
DX: T78.40XA Allergy, unspecified, initial encounter (principal); J45.909 Unspecified asthma, uncomplicated; E11.9 Type 2 diabetes mellitus without complications; I50.9 Heart failure, unspecified; I11.0 Hypertensive heart disease with heart failure; Z79.82 Long term (current) use of aspirin; Z79.4 Long term (current) use of insulin; Z79.84 Long term (current) use of oral hypoglycemic drugs
CPT/HCPCS: J1200; J2780